=== PATIENT | female | born 1980 ===

== ENCOUNTER 2020-06-17 13:00 | Outpatient (REF) | payer MEDICAID, SELFPAY ==
--- NOTE | 2020-06-17 | US_ITS ---
EXAMINATION: RIGHT and LEFT LOWER EXTREMITY VENOUS ULTRASOUND (Reflux Exam) CLINICAL INDICATION: leg pain and varicose veins. COMPARISON: None. TECHNIQUE: Color flow triplex imaging and compression Doppler was performed to evaluate both the deep and the superficial systems bilaterally. To evaluate the superficial system, the examination was performed in the upright position. Color-flow Doppler ultrasound and compression ultrasound were utilized. In addition, maneuvers were utilized to demonstrate reflux. FINDINGS: 1. DEEP VENOUS ULTRASOUND OF THE RIGHT LOWER EXTREMITY: Respiratory variation, normal compression and augmented flow are noted in the right common femoral vein as well as the right popliteal vein and there is no evidence of deep venous thrombosis at these locations. There is no evidence of reflux in the deep system in either the common femoral vein or the popliteal vein. There is no evidence of a Suarez's cyst. 2. SUPERFICIAL ULTRASOUND WITH DOPPLER OF RIGHT LOWER EXTREMITY: The right great saphenous vein at the saphenofemoral junction measures 5 mm, at the mid thigh 4 mm, gzqga-osj-jjjw 3 mm, aqiea-ggw-yiqf 3 mm, at mid calf 2 mm and at the ankle measures 2 mm. There is no reflux demonstrated in the right great saphenous vein. There is a lateral accessory greater saphenous vein that measures 2 to 3 mm and does not demonstrate reflux. The right small saphenous vein measures 2 mm and shows no reflux. 3. DEEP VENOUS ULTRASOUND OF THE LEFT LOWER EXTREMITY: Respiratory variation, normal compression and augmented flow are noted in the left common femoral vein as well as the left popliteal vein and there is no evidence of deep venous thrombosis at these locations. There is no evidence of reflux in the deep system in either the common femoral vein or the popliteal vein. . There is no evidence of a Suarez's cyst. 4. SUPERFICIAL ULTRASOUND WITH DOPPLER OF LEFT LOWER EXTREMITY: Left great saphenous vein at the saphenofemoral junction measures 4 mm, at the mid thigh 3 mm, fdvje-zxa-sxba 3 mm, glwfw-iku-qhek 2 mm, at mid calf to mm and at the ankle measures 2 mm. There is no reflux demonstrated in the left great saphenous vein. There is a lateral accessory greater saphenous vein that measures 2 to 3 mm and does not demonstrate reflux The left small saphenous vein measures 2 mm and shows no reflux. There is a building drafting officer in the distal calf that measures 2 mm and does not demonstrate reflux. US/US venous duplex LE BI IMPRESSION: 1. No evidence of reflux or thrombus in the common femoral veins or popliteal veins bilaterally. 2. The saphenous systems are competent bilaterally.
== END 2020-06-17 13:01 | disposition home or self-care (01) ==
LOC: HO.US 13:00
PROVIDERS: PCP Internal Medicine; Visit Provider Surgery Vascular Surgery
DX: I83.11 Varicose veins of right lower extremity with inflammation (principal)
CPT/HCPCS: 93970

== ENCOUNTER → 2020-07-08 11:04 | Outpatient (BNVA) | payer MEDICAID, SELFPAY | PROVIDERS: PCP Internal Medicine; Visit Provider Surgery Vascular Surgery | DX: Z76.89 Persons encountering health services in other specified circumstances (principal) ==

== ENCOUNTER 2020-07-16 13:36 | Emergency (ER) | payer MEDICAID, SELFPAY ==
--- NOTE | 2020-07-16 14:05 | ED_ITS ---
HPI - Headache General Chief Complaint: Headache Stated Complaint: pain rt side of head and eye Time Seen by Provider: 07/16/20 14:05 Source: patient and skilled nursing facilities professional Mode of arrival: ambulatory Limitations: no limitations History of Present Illness MD elicited complaint: headache and migraine Pertinent past history: HIV and migraines Onset (ago): day(s) (4) Onset description: gradually Location: right and temporal Severity: similar to previous episodes Quality & Timing: aching, throbbing and progressively worsening Exacerbating factors: light and noise Relieving factors: prescription medication and sleep Context: occurred at rest Associated symptoms: nausea, photophobia and sensitivity to sound Treatments prior to arrival: prescription analgesic (fioricet) Related Data Home Medications Medication Instructions Recorded Confirmed No Known Home Meds 07/16/20 07/16/20 Previous Rx's Medication Instructions Recorded hghkzvkonh-rncnvquufbrbq-mqys 1 tab PO Q6H PRN #20 tab 07/16/20 cyclobenzaprine 10 mg PO TID PRN #14 tab 07/16/20 ondansetron 4 mg PO Q8H PRN #20 tab 07/16/20 Allergies Allergy/AdvReac Type Severity Reaction Status Date / Time azithromycin [AZITHROMYCIN] Allergy Intermediate DIARRHEA Verified 07/16/20 1 3:55 ciprofloxacin [From CIPRO] Allergy Intermediate DIARRHEA Verified 07/16/20 13:55 Review of Systems Review of Systems: Constitutional : No Fever, No Chills, No Fatigue ENT/Mouth : No sore throat, No Rhinorrhea Eyes: pos photophobia No Swelling, No Redness Cardiovascular : No Chest Pain, No SOB, No Dyspnea on Exertion Respiratory : No Cough, No Sputum Gastrointestinal : posNausea, No Vomiting, No Diarrhea, No abdominal Pain Genitourinary : No Dysuria, No Urinary Frequency, No Hematuria, Musculoskeletal : No joint pain, No Myalgias, No Joint Swelling Skin : No Skin Lesions, No rash Neuro : No Weakness, No Numbness, No Dizziness, positive Headache Psych : No Anxiety/Panic, No Depression Heme/Lymph: No Bruising, No Bleeding,No Lymphadenopathy Endocrine : No Polyuria, No Polydipsia All other systems reviewed and are negative PMFSH Past Medical History Attestation statement: The following information was validated with the patient. Medical History HIV (human immunodeficiency virus infection) Migraines Surgical History H/O section H/O hemorrhoidectomy History of hysterectomy Hx of colonoscopy Hx of ovarian cyst Family History Family History Father No problems noted. Mother No problems noted. Brother No problems noted. Son No problems noted. Son No problems noted. Social History Social History Smoking Status: Current every day smoker Tobacco Type: Cigarette Cigarettes Per Day: 6 Use of substances other than those prescribed or required for medical reasons: Yes Substance Use Type: Marijuana Advance Directives: No Advance Directives Information Provided: No Physical Exam Vital Signs: Vital Signs: Last Vital Signs Temp 98 F 07/16/20 15:34 Pulse 72 07/16/20 15:34 Resp 18 07/16/20 15:34 BP 136/80 07/16/20 15:34 Pulse Ox 97 07/16/20 15:34 Body Mass Index 21.7 Appearance: Alert. Oriented X3. No acute distress. Eyes: Pupils equal, round and reactive to light. + photophobia ENT: Pharynx normal. Neck: Normal inspection. Neck supple. no meningeal signs CVS: Normal heart rate and rhythm. Pulses normal. Respiratory: No respiratory distress. Breath sounds normal. Abdomen: Soft and nontender. Skin: Skin warm and dry. Normal skin color. Normal skin turgor. Extremities: No lower extremity edema. No calf ttp Neuro: Oriented X 3. No motor deficit. No sensory deficit. Course Course Course Narrative: feels better stable for DC MDM - Headache MDM Narrative Medical decision making narrative: 39 yo female with PMH of migraines and HIV not on AC therapy here with 4 days of R sided headache gradual onset without fevers similar to her prior migraines - states her HIV is stable and her viral count is low, has no meningeal signs of fevers at this time will provide supportive medications - given lack of fevers/meningeal signs/gradual onset/consistent with prior headaches doubt FIRST AID DIRECTOR infection or SAH Discharge Plan Discharge Clinical Impression: Migraine Qualifiers: Migraine type: without aura Status migrainosus presence: without status migrainosus Intractability: not intractable Qualified Code(s): G43.009 - Migraine without aura, not intractable, without status migrainosus Patient Disposition: Home, Self-Care Instructions: Migraine Headache (ED) Additional Instructions: return to ED for any worsening symptoms or concerns Prescriptions: New cyclobenzaprine 10 mg tablet 10 mg PO TID PRN (Reason: muscle spasm) Qty: 14 RF: 0 mkpmgixydh-jeobpqtsgzigd-plcd 50-325-40 mg tablet 1 tab PO Q6H PRN (Reason: pain) Qty: 20 RF: 0 ondansetron 4 mg tablet,disintegrating 4 mg PO Q8H PRN (Reason: nausea and vomiting) Qty: 20 RF: 0 No Action No Known Home Meds RF: 0 Referrals: [place],[facility] [Primary Care Provider] - 2 days (if not better) Stand Alone Forms: Work/School Release Print Language: Icelandic
[2020-07-16 14:26] VITALS: BP 124/82; PULSE 64; RESP 16; TEMP 36.5; O2SAT 95; BMI 21.7
[2020-07-16] MEDS: 0.9 % Sodium Chloride 1,000 ML 999 ML IVCONT (14:52)
[2020-07-16] MEDS: Magnesium Sulfate/H2O 2 GM/50 ML PIGGYBACK IV (14:53)
[2020-07-16] MEDS: dexAMETHasone sod phosphate 4 MG/ML VIAL IVPUSH (14:54)
[2020-07-16] MEDS: ondansetron HCL 4 MG/2 ML VIAL IVPUSH (14:56)
[2020-07-16] MEDS: Ketorolac Tromethamine 30 MG/ML VIAL IVPUSH (14:56)
[2020-07-16 15:34] VITALS: BP 136/80; PULSE 72; RESP 18; TEMP 36.6; O2SAT 97
== END 2020-07-16 16:15 | disposition home or self-care (01) ==
PROVIDERS: Emergency Provider Emergency Medicine
DX: G43.009 Migraine without aura, not intractable, without status migrainosus (principal); B20 Human immunodeficiency virus [HIV] disease; F17.210 Nicotine dependence, cigarettes, uncomplicated
CPT/HCPCS: 96365; 96375; 99284; J1100; J1885; J2405; J3475

== ENCOUNTER 2020-07-16 21:57 | Emergency (ER) | payer MEDICAID, SELFPAY ==
[2020-07-16 22:37] VITALS: BP 129/82; PULSE 66; RESP 16; TEMP 36.8; O2SAT 98; BMI 20.9
--- NOTE | 2020-07-16 22:53 | PC.NURSE ---
PT WOJCIECH HAD NORMAL CT SCAN AT PREVIOUS VISIT.
--- NOTE | 2020-07-16 23:23 | ED_ITS ---
HPI - General Adult General Chief complaint: General Medical Stated complaint: MONGE, SEEN FOR SAME TODAY Time Seen by Provider: 07/16/20 23:22 Source: patient Mode of arrival: ambulatory Limitations: no limitations History of Present Illness HPI narrative: Patient reports a migraine headache to the right side for the past 4 days reports she was seen here prior to arrival and was unable to fill her prescriptions there for the headache is back. With associated nausea Photophobia and sensitivity to sound. denies any other symptoms complaints or concerns at this time. Reports this is similar when compared to her prior migraine headaches. Related Data Previous Rx's Medication Instructions Recorded vpeihqmcfj-czflizfpiyxsx-zjxf 1 tab PO Q6H PRN #20 tab 07/16/20 cyclobenzaprine 10 mg PO TID PRN #14 tab 07/16/20 ondansetron 4 mg PO Q8H PRN #20 tab 07/16/20 oxycodone-acetaminophen [Percocet] 1 tab PO Q6H PRN #10 tab 07/16/20 Allergies Allergy/AdvReac Type Severity Reaction Status Date / Time azithromycin [AZITHROMYCIN] Allergy Intermediate DIARRHEA Verified 07/16/20 13:55 ciprofloxacin [From CIPRO] Allergy Intermediate DIARRHEA Verified 07/16/20 13:55 Review of Systems Review of Systems: Constitutional : No changes in activity, No lethargy, No recent prior head injury, No agitation, No increased fussiness ENT/Mouth : No Ear Pain, No Nasal discharge/drainage Eyes: No Eye Pain, No Swelling, No Redness, No Foreign Body, No Vision Changes Cardiovascular : No Chest Pain, No SOB Respiratory : No Cough Gastrointestinal : No Nausea, No Vomiting, No abdominal Pain Genitourinary : No Dysuria, No Urinary Frequency, No Urinary Incontinence, No Urgency, No Flank Pain Musculoskeletal : No joint pain, No neck stiffness, No back pain/injury Skin : No lacerations Neuro : No unsteady gait, No Paresthesias, No Loss of Consciousness, No altered mental status, No dizziness, + Headache Denies recent trauma, coagulopathy, recent spinal/ epidural procedure, new medication, URI symptoms, close contacts with similar symptoms, tick bite, or known CO2 exposure. Yes all other systems are reviewed and are negative PMFSH Past Medical History Attestation statement: The following information was validated with the patient. Medical History HIV (human immunodeficiency virus infection) Migraines Surgical History H/O section H/O hemorrhoidectomy History of hysterectomy Hx of colonoscopy Hx of ovarian cyst Family History Family History Father No problems noted. Mother No problems noted. Brother No problems noted. Son No problems noted. Son No problems noted. Social History Social History Alcohol intake: never Smoking Status: Current every day smoker Tobacco Type: Cigarette Cigarettes Per Day: 6 Substance Use Type: Marijuana Advance Directives: No Advance Directives Information Provided: Yes Physical Exam Vital Signs: Vital Signs: Last Vital Signs Temp 98.2 F 07/16/20 22:37 Pulse 66 07/16/20 22:37 Resp 16 07/16/20 22:37 BP 129/82 07/16/20 22:37 Pulse Ox 98 07/16/20 22:37 Body Mass Index 20.9 Vital signs have been reviewed as normal and appeared to be correct. Blood pressure normal. Heart rate normal. Respiration rate normal. Temperature normal. Oxygen saturation normal. Appearance: Alert. Oriented X3. No acute distress. Head: Normal external exam. Normocephalic. Atraumatic. Able to rotate head bilaterally. Eyes: PERRLA. EOMI. No nystagmus noted. Conjunctiva and sclera normal. Eyelids normal. Corneal reflex normal. ENT: EAC normal. TM's Normal. Hearing normal. Pharynx normal. Uvula midline. tongue midline. Moist mucous membranes. No trismus noted. No drooling noted. No muffled voice noted. Neck: Normal inspection. Neck supple. FROM. No adenopathy. Thyroid Normal. No meningeal signs. No neck mass noted. CVS: Normal heart rate and rhythm. Heart sound normal. No murmurs noted. Pulses normal throughout. Respiratory: No respiratory distress. Painless inspiration. Breath sounds normal. No wheezes/rales/rhonchi noted. Chest nontender. No accessory muscle usage noted or decreased air movement noted. Back: Full range of motion noted. Skin: Skin warm and dry. Normal skin color. Normal skin turgor. No rashes/lesions/lacerations noted. Extremities: Extremities exhibit normal range of motion. Extremities nontender. Able to shrug shoulders bilaterally and keep up against resistance. Neuro: Oriented X 3. No motor deficit. No sensory deficit. Reflexes normal. Moving all extremities. No focal motor deficits. Cranial nerves II-XI intact bilaterally. Facial strength normal. Normal cognition. Speech normal. Gait normal. Strength 5/5 throughout. No pronator drift. No tremor noted. No fasciculations noted. Muscle tone normal throughout. No asterixis noted. Guarls-yw-qmcu test normal. Heel to cifuentes test normal. Tandem gait normal. Does not sway with eyes open. Romberg test negative. Rapid alternating movement upper extremity normal. Rapid alternating movement lower extremity normal. Hand drop from overhead-Mrs. face. No rigidity noted. NIHSS score 0. Course Course Course Narrative: - Patient afebrile, resting comfortably in no distress. Non- toxic appearing. Patient denies any recent trauma/injury to head. Neurological exam shows no deficits. BP WNL. Denies any changes in vision. Patient ambulates without difficulty. Given the history, and physical - most likely diagnosis: Migraine MONGE. Although due to patient reporting that this is longer than her usual headaches will obtain CT scan of brain to evaluate for any acute processes. Will treat pain, and nausea. Will d/c with migraine medicaiton and advised to follow - up with PCP. Patient demonstrated good understanding of signs and symptoms to return to ED for further testing should sx worsen. gradual onset MONGE with photo/phonophobia, nausea. Pt states classic of previous migraine HAs. SAH: unlikely given gradual onset and similar to previous episodes Intracranial bleed: unlikely given neg trauma, neg anticoagulation Meningitis: unlikely given pt afebrile, neg stiff neck, no immune compromise. Exam without signs of meningismus Temporal arteritis: Unlikely given Neg jaw claudication, no temporal tenderness or nodularity on exam. Cerebral venous thrombosis: unlikely given no h/o hypercoaguable state, no chronic head/neck infection. Medical Decision Making Medical Records Medical records reviewed: Yes I reviewed the patient's medical records. Discharge Plan Discharge Clinical Impression: Migraine Patient Disposition: Home, Self-Care Instructions: Migraine Headache (ED) Prescriptions: New oxycodone-acetaminophen [Percocet] 5-325 mg tablet 1 tab PO Q6H PRN (Reason: pain) Qty: 10 RF: 0 No Action cyclobenzaprine 10 mg tablet 10 mg PO TID PRN (Reason: muscle spasm) Qty: 14 RF: 0 rongedplsa-ixjlianaipjtl-iiru 50-325-40 mg tablet 1 tab PO Q6H PRN (Reason: pain) Qty: 20 RF: 0 ondansetron 4 mg tablet,disintegrating 4 mg PO Q8H PRN (Reason: nausea and vomiting) Qty: 20 RF: 0 Referrals: Physician,Unknown [Primary Care Provider] - 2 days Print Language: Kenyan
[2020-07-16] MEDS: HYDROcodone Bit/Acetam 5/325 TABLET 1 TAB PO (23:42)
== END 2020-07-16 23:46 | disposition home or self-care (01) ==
PROVIDERS: Emergency Provider Emergency Medicine Emergency Medical Services
DX: G43.909 Migraine, unspecified, not intractable, without status migrainosus (principal); F17.210 Nicotine dependence, cigarettes, uncomplicated; F12.10 Cannabis abuse, uncomplicated; Z71.6 Tobacco abuse counseling; Z79.899 Other long term (current) drug therapy
CPT/HCPCS: 99283; 99284

== ENCOUNTER 2020-10-10 10:57 | Outpatient (REF) | payer MEDICAID, SELFPAY ==
--- NOTE | ~2020-10-10 | US_ITS ---
EXAMINATION: US PELVIS, COMPLETE US TRANSVAGINAL CLINICAL INFORMATION: Pelvic pain. COMPARISON: 08/06/2017 TECHNIQUE: Transabdominal and transvaginal imaging was performed. FINDINGS: Status post hysterectomy. Right ovary measures 3.1 x 1.9 x 2.4 cm. Volume 7.4 mL. There is a 1.7 cm simple-appearing cyst. Left ovary measures 1.9 x 1.3 x 1.2 cm. Volume 1.5 mL. Small follicles in the left ovary. There is a tubular structure with internal echogenicity and perhaps septations, located in the left adnexa, suggesting a hydrosalpinx. No free fluid in the cul-de-sac. US/US transvaginal IMPRESSION: Tubular structure with internal complexity and perhaps septations, located in the left adnexa, which could reflect a hydrosalpinx. Please clinically correlate and manage. Further evaluation with MRI as clinically warranted. Alternately, consider short-term followup ultrasound for reassessment. Status post hysterectomy. Right ovarian 1.7 cm simple cyst.
--- NOTE | ~2020-10-10 | US_ITS ---
EXAMINATION: US PELVIS, COMPLETE US TRANSVAGINAL CLINICAL INFORMATION: Pelvic pain. COMPARISON: 08/06/2017 TECHNIQUE: Transabdominal and transvaginal imaging was performed. FINDINGS: Status post hysterectomy. Right ovary measures 3.1 x 1.9 x 2.4 cm. Volume 7.4 mL. There is a 1.7 cm simple-appearing cyst. Left ovary measures 1.9 x 1.3 x 1.2 cm. Volume 1.5 mL. Small follicles in the left ovary. There is a tubular structure with internal echogenicity and perhaps septations, located in the left adnexa, suggesting a hydrosalpinx. No free fluid in the cul-de-sac. US/US pelvic complete IMPRESSION: Tubular structure with internal complexity and perhaps septations, located in the left adnexa, which could reflect a hydrosalpinx. Please clinically correlate and manage. Further evaluation with MRI as clinically warranted. Alternately, consider short-term followup ultrasound for reassessment. Status post hysterectomy. Right ovarian 1.7 cm simple cyst.
== END 2020-10-10 10:58 | disposition home or self-care (01) ==
LOC: HO.US 10:57
PROVIDERS: Visit Provider Advanced Practice Midwife
DX: R10.2 Pelvic and perineal pain (principal)
CPT/HCPCS: 76830; 76856

== ENCOUNTER 2021-11-17 11:44 | Outpatient (REF) | payer MEDICAID, SELFPAY ==
--- NOTE | ~2021-11-17 | US_ITS ---
EXAMINATION: US PELVIS CLINICAL INFORMATION: Right lower quadrant pain. COMPARISON: Pelvic ultrasound 10/10/[address] scans of the abdomen and pelvis most recent of which was 06/04/2016. TECHNIQUE: Ultrasound of the pelvis is performed using both transabdominal and transvaginal transducers along with Doppler. Transvaginal imaging is performed due to inadequate visualization transabdominally. FINDINGS: UTERUS: Not seen status post hysterectomy ADNEXA: RIGHT OVARY: The right ovary measures 3.0 x 1.8 x 1.9 cm for a volume of 5.4 mL and appears unremarkable. What appears to be some free fluid versus tubular cystic structure is present in the adnexal/cul-de-sac on the right, rather than a cystic mass. LEFT OVARY: Measures 2.6 x 1.6 x 1.9 cm for a volume of 4.1 mL. What appears to be some free fluid/adnexal cystic structure is also present in the left adnexa. US/US pelvic and transvaginal IMPRESSION: Status post hysterectomy. The ovaries appear normal. Cystic structures in the adnexa versus free fluid present bilaterally. Similar findings have been present in the past. A solid worrisome mass is not seen. The most recent pelvic CT was 06/04/2016. Should patient's symptoms persist, pelvic MRI may be useful for further evaluation.
== END 2021-11-17 11:45 | disposition home or self-care (01) ==
LOC: HO.US 11:44
PROVIDERS: Visit Provider Advanced Practice Midwife
DX: R10.31 Right lower quadrant pain (principal); N70.11 Chronic salpingitis; Z90.710 Acquired absence of both cervix and uterus
CPT/HCPCS: 76830; 76856

== ENCOUNTER 2021-12-02 01:25 | Emergency (ER) | payer MEDICAID, SELFPAY ==
[2021-12-02 01:42] VITALS: BP 105/69; PULSE 83; RESP 16; TEMP 36.7; O2SAT 98; BMI 23.6
[2021-12-02 04:08] VITALS: BP 101/70; PULSE 77; RESP 18; TEMP 36.7; O2SAT 98
[2021-12-02] MEDS: Acetaminophen 325 MG TABLET 975 MG PO (04:22)
[2021-12-02] MEDS: Ketorolac Tromethamine 15 MG/ML VIAL IM (04:22)
[2021-12-02] MEDS: Lidocaine 4 % Patch ADH..PATCH 1 PATCH TRANSDERMA (04:23)
--- NOTE | 2021-12-02 04:26 | PC.NURSE ---
Pt medicated per MAR.
--- NOTE | 2021-12-02 04:30 | PC.NURSE ---
Pt medicated per MAR. CORDOVA at bedside for eval.
--- NOTE | 2021-12-02 05:18 | ED_ITS ---
HPI - Back Pain/Injury General Chief Complaint: Back Pain/Injury Stated Complaint: lower back pain Time Seen by Provider: 12/02/21 05:18 Source: patient and director of medical review History of Present Illness HPI Narrative: A 41-year-old female with history of HIV and currently takes care of her ailing father at home and presents with onset of left lower back pain without groin numbness and she states that does not radiate into either lower extremity and she denies any bowel or bladder dysfunction. In addition, patient denies any history of IVDA, fevers, chills, GI or symptoms. Patient states that the pain is worse with movement. Related Data Previous Rx's Medication Instructions Recorded [id number] 1 tab PO Q6H PRN #20 tab 07/16/20 50 mg-325 mg-40 mg tablet cyclobenzaprine 10 mg tablet 10 mg PO TID PRN #14 tab 07/16/20 ondansetron 4 mg disintegrating 4 mg PO Q8H PRN #20 tab 07/16/20 tablet oxycodone-acetaminophen 5 mg-325 1 tab PO Q6H PRN #10 tab 07/16/20 mg tablet (Percocet) cyclobenzaprine 5 mg tablet 5 mg PO BEDTIME PRN #4 tab 12/02/21 ketorolac 10 mg tablet 10 mg PO Q6H PRN 5 Days #20 tab 12/02/21 nitrofurantoin 100 mg PO Q12H 5 Days #10 cap 12/02/21 monohydrate/macrocrystals 100 mg capsule (Macrobid) Allergies Allergy/AdvReac Type Severity Reaction Status Date / Time azithromycin [AZITHROMYCIN] Allergy Intermediate DIARRHEA Verified 12/02/21 01:46 ciprofloxacin [From CIPRO] Allergy Intermediate DIARRHEA Verified 12/02/21 01:46 Review of Systems Review of Systems: Pertinent positives and negatives as stated in HPI 10 point review of systems is otherwise negative. [facility] Past Medical History Source: nursing notes reviewed Medical History HIV (human immunodeficiency virus infection) Migraines Surgical History H/O section H/O hemorrhoidectomy History of hysterectomy Hx of colonoscopy Hx of ovarian cyst Family History Family History Father No problems noted. Mother No problems noted. Brother No problems noted. Son No problems noted. Son No problems noted. Social History Social History Alcohol intake: never Cigarettes Per Day: 6 Substance Use Type: Marijuana Advance Directives: No Advance Directives Information Provided: Yes Patient : No Physical Exam Vital Signs: Vital Signs: Last Vital Signs Temp 98.2 F 12/02/21 05:27 Pulse 64 12/02/21 05:27 Resp 16 12/02/21 05:27 BP 100/69 12/02/21 05:27 Pulse Ox 100 12/02/21 05:27 BMI result Body Mass Index 23.6 VITAL SIGNS: Reviewed. GENERAL: Well developed, well nourished, in no acute distress. HEAD: Normocephalic/atraumatic EYES: PERRLA, EOMI EARS: Ext canals without abnormality, TMs non-bulging and non-erythematous NOSE: Nares patent bilateral OROPHARYNX: no oral lesions noted, posterior pharynx clear and non-erythematous without noted tonsillar enlargement/erythema/exudates NECK: Supple, no adenopathy LUNGS: Normal breath sounds. No adventitious sounds or accessory muscle use. SpO2<100> CARDIOVASCULAR: Regular rate and rhythm without noted murmurs ABDOMEN: Soft, non-tender, non-distended with bowel sounds, no CVA tenderness BACK: No midline vertebral tenderness, no erythema or induration noted over left lower back paraspinal area, but obvious muscle spasm on palpation, straight leg test negative MUSCULOSKELETAL: No tenderness, deformities, or effusions noted on gross inspection. EXTREMITIES: No cyanosis, clubbing or edema. SKIN: Inspection of the skin reveals no rashes NEUROLOGIC: Alert and oriented x 4. Strength and sensation to light touch were grossly intact x 4. Course Course Course Narrative: 41-year-old female with history and clinical presentation most consistent with muscle spasm and no evidence to suggest cauda equina, spinal abscess, or abdominal/urologic etiology. Patient was provided with combination analgesics and on re-evaluation reports considerable improvement in her symptoms and she is otherwise discharged home in stable condition. MDM - Back Pain/Injury Lab Data Labs: Lab Results 12/02/21 Range/Units 05:23 Urine Color YELLOW Urine Appearance HAZY Urine pH 6.5 (5.0-8.0) Ur Specific [place] 1.025 (1.005-1.025) Urine Protein NEG (NEG-TRACE) MG/DL Urine Glucose (UA) NEG (NEG) MG/DL Urine Ketones 5 (NEG) MG/DL Urine Blood 2+ H (NEG) Urine Nitrite POS H (NEG) Ur Leukocyte Esterase NEG (NEG) Discharge Plan Discharge Clinical Impression: Muscle spasm, Left low back pain, UTI (urinary tract infection) Patient Disposition: Home, Self-Care Instructions: Muscle Spasm (ED), Back Pain (ED) Additional Instructions: 1. Tylenol 1000 mg, por v?a oral, cada 6 horas seg?n sea necesario para controlar el dolor. No exceda los 4000 mg dentro de las 24 horas. 2. Parche de lidoca?na, aplique en el ?amy de m?xima sensibilidad matilda se indica en el empaque exterior. 3. Realice un seguimiento con proveedor de atenci?n primaria en los pr?ximos 1 a 2 d?as para bro reevaluaci?n adicional del manejo ambulatorio. Regrese a la isabell de emergencias si los s?ntomas empeoran. Prescriptions: New ketorolac 10 mg tablet 10 mg PO Q6H PRN (Reason: pain) 5 Days Qty: 20 0RF cyclobenzaprine 5 mg tablet 5 mg PO BEDTIME PRN (Reason: muscle spasm) Qty: 4 0RF nitrofurantoin monohyd/m-cryst [Macrobid] 100 mg capsule 100 mg PO Q12H 5 Days Qty: 10 0RF Rx Instructions: must administer with a meal/food No Action cyclobenzaprine 10 mg tablet 10 mg PO TID PRN (Reason: muscle spasm) Qty: 14 0RF keqninpzqk-evprfwvgqtlwi-qalc 50-325-40 mg tablet 1 tab PO Q6H PRN (Reason: pain) Qty: 20 0RF ondansetron 4 mg tablet,disintegrating 4 mg PO Q8H PRN (Reason: nausea and vomiting) Qty: 20 0RF oxycodone-acetaminophen [Percocet] 5-325 mg tablet 1 tab PO Q6H PRN (Reason: pain) Qty: 10 0RF Referrals: [facility] [Primary Care Provider] - Print Language: Croatian
[2021-12-02 05:27] VITALS: BP 100/69; PULSE 64; RESP 16; TEMP 36.8; O2SAT 100
[2021-12-02] MEDS: Cyclobenzaprine HCl 10 MG TABLET PO (05:28)
[2021-12-02 05:34] LABS: Appearance Urine HAZY; Color Urine YELLOW; Glucose Urine UA NEG (NEG); Leukocyte Esterase Urine NEG (NEG); Nitrite Urine POS (NEG); PH 6.5 (5.0-8.0); Specific Gravity - Urine 1.025 (1.005-1.025); UACC Culture Trigger YES; Urine Blood 2+ (NEG); Urine Ketones 5 MG/DL (NEG); Urine Protein NEG (NEG-TRACE)
[2021-12-02 05:41] LABS: Bacteria Urine 4+ /LPF; Mucus Urine 2+ /LPF; Squamous Epithelial Cell Urine 2+ /LPF
[2021-12-02] MEDS: Nitrofurantoin Monohyd/M-Cryst 100 MG CAPSULE PO (05:49)
== END 2021-12-02 05:57 | disposition home or self-care (01) ==
PROVIDERS: Emergency Provider Student in an Organized Health Care Education/Training Program
DX: N39.0 Urinary tract infection, site not specified (principal); M54.50 Low back pain, unspecified; Z79.899 Other long term (current) drug therapy; F17.210 Nicotine dependence, cigarettes, uncomplicated; Z71.6 Tobacco abuse counseling
CPT/HCPCS: 81001; 87086; 87088; 87186; 96372; 99284; J1885

== ENCOUNTER 2021-12-16 10:26 | Outpatient (REF) | payer MEDICAID, SELFPAY ==
--- NOTE | ~2021-12-16 | MM_ITS ---
EXAMINATION: MM SCREENING DIGITAL BREAST TOMOSYNTHESIS, BILATERAL CLINICAL INFORMATION: Screening. Asymptomatic. Age 41. No prior breast imaging. The lifetime risk of breast cancer based on the Tyrer-Cuzick Model is 11%. COMPARISON: None (current study represents initial baseline exam). TECHNIQUE: Digital breast tomosynthesis is performed in both the craniocaudal and mediolateral oblique views along with computer-aided detection (CAD). Synthesized 2D images are generated from the tomosynthesis. FINDINGS: There are scattered areas of fibroglandular density (ACR BI-RADS breast composition Category b). There are no significant masses, abnormal calcifications, or other abnormalities. There is some fine deodorant artifact overlying left axilla skin fold on MLO view as incidental finding. MM/MM tomosynthesis screening BI IMPRESSION: No mammographic evidence of malignancy. ASSESSMENT: BI-RADS 2: Benign RECOMMENDATION: Routine annual mammography screening. This patient's information was entered into a reminder system with a target due date for their next mammogram.
== END 2021-12-16 10:27 | disposition home or self-care (01) ==
LOC: HO.MAMMO 10:26
PROVIDERS: Visit Provider Internal Medicine
DX: Z12.31 Encounter for screening mammogram for malignant neoplasm of breast (principal)
CPT/HCPCS: 77063; 77067

== ENCOUNTER 2022-03-11 16:35 | Emergency (ER) | payer MEDICAID, SELFPAY ==
[2022-03-11 17:09] VITALS: BP 113/74; PULSE 95; RESP 18; TEMP 36.6; O2SAT 59; BMI 21.7
[2022-03-11] MEDS: Ondansetron ODT 4 MG TAB.RAPDIS TRANSLINGU (17:13)
== END 2022-03-11 23:00 | disposition left against medical advice (07) ==
PROVIDERS: Emergency Provider Emergency Medicine
DX: R51.9 Headache, unspecified (principal); R11.10 Vomiting, unspecified; B20 Human immunodeficiency virus [HIV] disease; F12.90 Cannabis use, unspecified, uncomplicated; F17.210 Nicotine dependence, cigarettes, uncomplicated
CPT/HCPCS: 99281; 99283

== ENCOUNTER 2022-03-20 09:56 | Outpatient (RCR) | payer MEDICAID, SELFPAY | END 2022-03-31 15:09 | disposition home or self-care (01) | LOC: HO.PT 09:56 | PROVIDERS: PCP Internal Medicine; Visit Provider Internal Medicine | DX: M54.50 Low back pain, unspecified (principal) | CPT/HCPCS: 97140; 97161; 97530 ==

== ENCOUNTER 2022-08-11 10:45 | Emergency (ER) | payer MEDICAID, SELFPAY ==
--- NOTE | ~2022-08-11 | CT_ITS ---
EXAMINATION: CT ABDOMEN AND PELVIS WITHOUT CONTRAST CLINICAL INFORMATION: Left flank pain COMPARISON: Previous pelvic ultrasounds most recent November [address] from 2016 TECHNIQUE: Multidetector volumetric imaging was performed from the superior aspect of the liver through the pubic symphysis. Sagittal and coronal reformatted images were obtained on the technologist's workstation. This CT examination was performed using dose optimization techniques as appropriate, variously including the following: *Automated exposure control *Adjustment of mA and/or kV according to patient size (this includes techniques or standardized protocols for targeted exams where dose is matched to indication/reason for exam; i.e. extremities or head) *Use of iterative reconstruction technique DLP: 391 mGy-cm FINDINGS: LUNG BASES: The visualized lung bases are unremarkable. LIVER, GALLBLADDER, AND BILIARY TREE: The liver is normal in size, shape, and attenuation. No focal hepatic lesion or biliary ductal dilatation is present. The gallbladder is unremarkable with no evidence of radiopaque gallstones, gallbladder wall thickening, or obvious pericholecystic inflammatory changes. PANCREAS: Unremarkable. SPLEEN: Unremarkable. ADRENAL GLANDS: Unremarkable. KIDNEYS AND URETERS: The kidneys are normal in size, shape, and attenuation. No hydronephrosis, hydroureter, or calculi seen. No perinephric stranding. There may be a small cyst in the lower pole of the right kidney. BLADDER: Unremarkable. GASTROINTESTINAL TRACT: The small and large bowel are unremarkable. The appendix is not seen. No inflammatory changes in the right lower quadrant. ABDOMINAL WALL: Postsurgical changes to the anterior abdominal wall. LYMPH NODES: Normal. VASCULAR: Unremarkable. PELVIC VISCERA: Right adnexal cyst/cysts. This appears similar to previous pelvic ultrasounds. It is possible this could represent a hydrosalpinx. Small amount of ascites in the pelvis with question dependent high attenuation material or calcification new from previous exams. OSSEOUS STRUCTURES: Unremarkable. CT/CT abdomen pelvis wo IV con IMPRESSION: No stone or hydronephrosis seen. Cyst or cystic structure in the right adnexa. This may be similar to previous ultrasound exams. This could be better evaluated with ultrasound or MRI. Again appearance is questionable for possible hydrosalpinx. New small amount of fluid in the pelvis with dependent high attenuation questionable for calcification. Calcification. Fleischner guidelines were followed.
[2022-08-11 11:45] VITALS: BP 99/73; PULSE 67; RESP 20; TEMP 36.7; O2SAT 99; BMI 23.3
[2022-08-11 12:23] LABS: Appearance Urine Clear; Color Urine Dark Yellow; Glucose Urine UA Negative (Negative); Leukocyte Esterase Urine Negative (Negative); Nitrite Urine Positive (Negative); PH 5.5 (5.0-9.0); Specific Gravity - Urine >= 1.030 (1.005-1.025); UMIC TRIGGER UACC YES; Urine Blood Moderate (2+) (Negative); Urine Ketones Trace mg/dL (Negative); Urine Protein Trace mg/dL (Neg-Trace)
[2022-08-11 12:28] LABS: Bacteria Urine Trace (None Seen); RBC Urine >20 /HPF (0-2); UACC Culture Trigger YES; WBC Urine 0-5 /HPF (0-5)
--- NOTE | 2022-08-11 12:58 | ED_ITS ---
HPI - Abdominal Pain General Chief Complaint: Back Pain/Injury Stated Complaint: Back pain x1week Time Seen by Provider: 08/11/22 12:49 Source: patient Mode of arrival: ambulatory Limitations: no limitations History of Present Illness HPI narrative: Patient is a 41-year-old female who presents to the emergency department for evaluation of left lower back pain. She reports onset of symptoms to be 1 week ago, however the pain became severely worse today. She states that the pain radiates around her side and into the left lower abdomen / groin and into the top of her leg. She does endorse a history of neuropathy which has caused similar pain in the past but not to this extent. She has been taking Tylenol and ibuprofen at home without significant improvement. Of note, she has not taken any pain medications today. She denies associated fevers, chills, nausea, vomiting, upper abdominal pain, dysuria, urinary frequency/ urgency / hesitancy, Hematuria, pelvic pain, vaginal discharge, possibility of or sexually transmitted infections. she denies any precipitating trauma, bladder or bowel dysfunction, numbness or tingling to the extremities. She does endorse a history of HIV but she states that her viral load was undetectable most recently, does not recall her most recent CD4 count but does know it was approximately 6 months ago. She reports compliance with her medications. Related Data Previous Rx's Medication Instructions Recorded [id number] 1 tab PO Q6H PRN pain #20 tabs 07/16/20 50 mg-325 mg-40 mg tablet cyclobenzaprine 10 mg tablet 10 mg PO TID PRN muscle spasm #14 07/16/20 tabs ondansetron 4 mg disintegrating 4 mg PO Q8H PRN nausea and 07/16/20 tablet vomiting #20 tabs oxycodone-acetaminophen 5 mg-325 1 tab PO Q6H PRN pain #10 tabs 07/16/20 mg tablet (Percocet) cyclobenzaprine 5 mg tablet 5 mg PO BEDTIME PRN muscle spasm 12/02/21 #4 tabs ketorolac 10 mg tablet 10 mg PO Q6H PRN pain 5 days #20 12/02/21 tabs nitrofurantoin 100 mg PO Q12H 5 days #10 caps 12/02/21 monohydrate/macrocrystals 100 mg capsule (Macrobid) cefpodoxime 200 mg tablet 200 mg PO BID 7 days #14 tabs 08/11/22 naproxen 500 mg tablet 500 mg PO BID PRN pain #14 tabs 08/11/22 Allergies Allergy/AdvReac Type Severity Reaction Status Date / Time azithromycin [AZITHROMYCIN] Allergy Intermediate DIARRHEA Verified 03/11/22 17:08 ciprofloxacin [From CIPRO] Allergy Intermediate DIARRHEA Verified 03/11/22 17:08 Review of Systems Review of Systems Constitutional : No Weight loss, No Fever, No Chills ENT/Mouth :? No sore throat, No Rhinorrhea Eyes: No Swelling, No Redness Cardiovascular : No Chest Pain, No SOB, No Edema Respiratory : No Cough, No Sputum, No Wheezing Gastrointestinal : No Nausea, no Vomiting, no Diarrhea, positive abdominal pain, No Hematochezia, No Melena Genitourinary : No Dysuria, No Urinary Frequency, No Hematuria, No Urgency? Musculoskeletal : positive back pain. No joint pain, No Myalgias, No Joint Swelling Skin : No Skin Lesions, No rash Neuro : No Weakness, No Numbness, No Dizziness, No Headache Psych : No Anxiety/Panic, No Depression Heme/Lymph: No Bruising, No Lymphadenopathy Yes all other systems are reviewed and are negative PMFSH Past Medical History Attestation statement: The following information was validated with the patient. Source: old records reviewed Medical History HIV (human immunodeficiency virus infection) Migraines Surgical History H/O section H/O hemorrhoidectomy History of hysterectomy Hx of colonoscopy Hx of ovarian cyst Family History Family History Father No problems noted. Mother No problems noted. Brother No problems noted. Son No problems noted. Son No problems noted. Social History Social History Alcohol intake: never Cigarettes Per Day: 6 Substance Use Type: Marijuana Advance Directives: No Advance Directives Information Provided: No Physical Exam ED Vital Signs: Vital Signs - 24 hr 08/11/22 11:45 08/11/22 13:51 08/11/22 14:37 Temperature 98.0 F 98.4 F 98.1 F Pulse Rate 67 85 64 Respiratory Rate 20 18 16 Blood Pressure 99/73 134/86 149/83 H Pulse Oximetry 99 100 98 Oxygen Delivery Method Room Air Room Air BMI result Body Mass Index 23.3 Appearance: Alert.?Oriented to person, place and time. No acute distress.?Normal affect. Eyes: Pupils equal, round and reactive to light.? ENT: Pharynx normal.?? Neck: Normal inspection.? Neck supple.?? CVS: Heart sounds normal. Normal heart rate and rhythm.? Pulses normal.?? Respiratory: No respiratory distress.? Lung sounds clear to auscultation bilaterally?? Abdomen: Soft and non-tender. Normoactive bowel sounds. Skin: Skin warm and dry.? Normal skin color.? Extremities: No lower extremity edema.? Back: No paraspinal muscular tenderness. positive left CVA tenderness. No midline spinal tenderness, step-off's, or deformity. Full ROM intact in bilateral lower extremities. No rashes, lesions, areas of induration or fluctuance, or signs of infection noted. Neuro: Moves all extremities spontaneously. 5/5 strength in hip extension/flexion, abduction, adduction. Sensation to light touch intact bilaterally. Patellar and Achilles reflex 2+ bilaterally. No ataxia, gait normal and steady. No focal neuro deficits. Course Reevaluation(s) Reevaluation #1: urinalysis concerning for urinary tract infection, positive nitrites, trace bacteria, and microscopic hematuria is present. Patient be treated with ceftriaxone IV, will receive 1 L normal saline IV fluids in addition to ketorolac IV for pain. Time: 13:46 Reevaluation #2: CT of the abdomen and pelvis reveals no hydronephrosis or renal calculi. There is a cystic structure of the right adnexa that appears similar to prior ultrasound examinations, There is a new small amount of fluid in the pelvis dependent high attenuation questionable for calcification. Patient reports significant improvement in pain after receiving Toradol, currently 2/10. given presence of flank pain most concerning for pyelonephritis at this time, however she is nontoxic appearing, tolerating oral intake, she has an allergy to ciprofloxacin, at this time discussed plan of care for discharge home with prescription for Cefpodoxime in addition to naproxen, culture was sent and will be followed, advised outpatient follow-up with the primary care provider. Discussed worsening signs and symptoms to return back to emergency department for. All questions answered. She is discharged in stable condition. Time: 15:24 Medical Decision Making Medical Decision Making [facility] Narrative: patient is a 41-year-old female with a past medical history of asthma, HIV who presents to the emergency department for evaluation of left flank/ back radiating into the abdomen. At the time of examination she appears uncomfortable. Abdominal exam is benign she does have left CVA tenderness. Examination of the back without evidence of infection, no areas of fluctuance, induration, lesions, rashes. Will obtain CBC to evaluate for leukocytosis/ anemia, CMP to evaluate for abnormal electrolytes /abnormal renal function/ abnormal hepatic function, a CT of the abdomen and pelvis to evaluate for renal calculi, hydronephrosis, evidence of pyelonephritis, and Urinalysis. Lab Data [facility] Lab Attestation statement: I reviewed the patient's lab results. Result Diagrams: 08/11/22 13:23 08/11/22 13:23 Labs: Lab Results 08/11/22 08/11/22 08/11/22 Range/Units 12:16 12:19 13:23 WBC 4.3 L (4.8-10.8) X10*3/uL RBC 4.09 L (4.20-5.50) X10*6/uL Hgb 13.2 (12.0-16.0) g/dl Hct 39.8 (37.0-47.0) % MCV 97.3 (80.0-98.0) fL MCH 32.3 (27.0-33.0) pg MCHC 33.2 (31.0-35.0) g/dl RDW 11.9 (11.0-16.0) % Plt Count 141 L (160-400) X10*3/uL MPV 10.3 (9.4-12.3) fL Immature Gran % (Auto) 0.2 (0.0-0.4) % Neut % (Auto) 60.2 (45-73) % Lymph % (Auto) 30.4 (20-40) % Chase % (Auto) 7.1 (2-11) % Eos % (Auto) 1.9 (0-4) % Baso % (Auto) 0.2 (0-2) % Lymph # (Auto) 1.3 (1.2-4.9) X10*3/uL Chase # (Auto) 0.3 (0.1-1.2) X10*3/uL Eos # (Auto) 0.1 (0.0-0.4) X10*3/uL Baso # (Auto) 0.0 (0.0-0.2) X10*3/uL Abs Immat Gran (auto) 0.01 (0.00-0.03) X10*3/uL Absolute Neuts (auto) 2.6 (2.0-8.3) x10*3/uL Absolute Nucleated RBC 0.000 (0.0-0.012) X10*3/uL Nucleated RBC % (auto) 0.0 (0.0-0.2) /100WBC Sodium (135-145) mmol/L Potassium (3.3-5.1) mmol/L Chloride (96-108) mmol/L Carbon Dioxide (22-29) mmol/L Anion Gap (12-20) BUN (9-16) mg/dL Creatinine (0.5-1.4) mg/dL Estim Creat Clear Calc Estimated GFR Random Glucose (60-115) mg/dL Calcium (8.4-10.2) mg/dL Total Bilirubin (0.0-1.0) mg/dL AST (5-31) U/L ALT (0-31) U/L Alkaline Phosphatase (39-117) U/L Total Protein (6.5-8.0) g/dL Albumin (3.5-5.0) g/dL Urine Color Dark Yellow Urine Appearance Clear Urine pH 5.5 (5.0-9.0) Ur Specific Pierce >= 1.030 H (1.005-1.025) Urine Protein Trace (Neg-Trace) mg/dL Urine Glucose (UA) Negative (Negative) mg/dL Urine Ketones Trace (Negative) mg/dL Urine Blood Moderate (2+) H (Negative) Urine Nitrite Positive H (Negative) Ur Leukocyte Esterase Negative (Negative) Urine RBC >20 H (0-2) /HPF Urine WBC 0-5 (0-5) /HPF Ur Squamous Epith Cells 3-5 (0-2) /HPF Urine Bacteria Trace (None Seen) Hyaline Casts 3-5 (0-2) /LPF Urine Test NEGATIVE (NEGATIVE) 08/11/22 Range/Units 13:23 WBC (4.8-10.8) X10*3/uL RBC (4.20-5.50) X10*6/uL Hgb (12.0-16.0) g/dl Hct (37.0-47.0) % MCV (80.0-98.0) fL MCH (27.0-33.0) pg MCHC (31.0-35.0) g/dl RDW (11.0-16.0) % Plt Count (160-400) X10*3/uL MPV (9.4-12.3) fL Immature Gran % (Auto) (0.0-0.4) % Neut % (Auto) (45-73) % Lymph % (Auto) (20-40) % Chase % (Auto) (2-11) % Eos % (Auto) (0-4) % Baso % (Auto) (0-2) % Lymph # (Auto) (1.2-4.9) X10*3/uL Chase # (Auto) (0.1-1.2) X10*3/uL Eos # (Auto) (0.0-0.4) X10*3/uL Baso # (Auto) (0.0-0.2) X10*3/uL Abs Immat Gran (auto) (0.00-0.03) X10*3/uL Absolute Neuts (auto) (2.0-8.3) x10*3/uL Absolute Nucleated RBC (0.0-0.012) X10*3/uL Nucleated RBC % (auto) (0.0-0.2) /100WBC Sodium 138 (135-145) mmol/L Potassium 4.2 (3.3-5.1) mmol/L Chloride 108 (96-108) mmol/L Carbon Dioxide 26 (22-29) mmol/L Anion Gap 8 L (12-20) BUN 19 H (9-16) mg/dL Creatinine 0.72 (0.5-1.4) mg/dL Estim Creat Clear Calc 95.3 Estimated GFR > 60 Random Glucose 85 (60-115) mg/dL Calcium 8.7 (8.4-10.2) mg/dL Total Bilirubin 0.5 (0.0-1.0) mg/dL AST 16 (5-31) U/L ALT 17 (0-31) U/L Alkaline Phosphatase 63 (39-117) U/L Total Protein 6.4 L (6.5-8.0) g/dL Albumin 3.8 (3.5-5.0) g/dL Urine Color Urine Appearance Urine pH (5.0-9.0) Ur Specific [place] (1.005-1.025) Urine Protein (Neg-Trace) mg/dL Urine Glucose (UA) (Negative) mg/dL Urine Ketones (Negative) mg/dL Urine Blood (Negative) Urine Nitrite (Negative) Ur Leukocyte Esterase (Negative) Urine RBC (0-2) /HPF Urine WBC (0-5) /HPF Ur Squamous Epith Cells (0-2) /HPF Urine Bacteria (None Seen) Hyaline Casts (0-2) /LPF Urine Test (NEGATIVE) Radiology Impression Discussion of test interpretation with radiology: I have reviewed the radiologist's reading. Radiologist Impression: CT/CT abdomen pelvis wo IV con IMPRESSION: No stone or hydronephrosis seen. Cyst or cystic structure in the right adnexa. This may be similar to previous ultrasound exams. This could be better evaluated with ultrasound or MRI. Again appearance is questionable for possible hydrosalpinx. New small amount of fluid in the pelvis with dependent high attenuation questionable for calcification. Calcification. ? Fleischner guidelines were followed. Prescription Management I considered prescription management with: Pain Medication and Antibiotic cefpodoxime and naproxen sent to patient's pharmacy Medications Administered Discontinued Medications Generic Name Dose Route Start Last Admin Trade Name Freq PRN Reason Stop Dose Admin Sodium Chloride 1,000 mls @ 999 mls/hr 08/11/22 13:15 08/11/22 13:49 Ns IV 08/11/22 14:15 999 mls/hr .Q1H1M AMANDO Administration Ceftriaxone Sodium 1 gm/ 50 mls @ 100 mls/hr 08/11/22 13:11 08/11/22 14:59 Sodium Chloride IV 08/11/22 13:40 Infused ONCE ONE Infusion Ketorolac Tromethamine 30 mg 08/11/22 13:11 08/11/22 13:48 Ketorolac Tromethamine 30 Mg/Ml Vial IVPUSH 08/11/22 13:12 30 mg ONCE ONE Administration Discharge Plan Discharge Clinical Impression: Pyelonephritis Patient Disposition: Home, Self-Care Instructions: Kidney Infection (ED) Additional Instructions: as discussed, a prescription for antibiotic was sent to your pharmacy please complete this entire course. you have been given a prescription for naproxen to use twice daily as needed for pain, do not use ibuprofen in addition to this medication return to the emergency department with any new or worsening symptoms or concerns. Please follow-up with your primary care provider within the next week Prescriptions: New cefpodoxime 200 mg tablet 200 mg PO BID 7 Days Qty: 14 0RF Rx Instructions: must administer with a meal/food naproxen 500 mg tablet 500 mg PO BID PRN (Reason: pain) Qty: 14 0RF No Action cyclobenzaprine 10 mg tablet 10 mg PO TID PRN (Reason: muscle spasm) Qty: 14 0RF djsiiwionc-ylhwncszttpdn-phnb 50-325-40 mg tablet 1 tab PO Q6H PRN (Reason: pain) Qty: 20 0RF ondansetron 4 mg tablet,disintegrating 4 mg PO Q8H PRN (Reason: nausea and vomiting) Qty: 20 0RF oxycodone-acetaminophen [Percocet] 5-325 mg tablet 1 tab PO Q6H PRN (Reason: pain) Qty: 10 0RF ketorolac 10 mg tablet 10 mg PO Q6H PRN (Reason: pain) 5 Days Qty: 20 0RF cyclobenzaprine 5 mg tablet 5 mg PO BEDTIME PRN (Reason: muscle spasm) Qty: 4 0RF nitrofurantoin monohyd/m-cryst [Macrobid] 100 mg capsule 100 mg PO Q12H 5 Days Qty: 10 0RF Rx Instructions: must administer with a meal/food Referrals: [facility] [Primary Care Provider] - Interventions: ED Discharge Assessment Last Done: 08/11/22 16:17 Discharge Date/Time: 08/11/22 16:18
[2022-08-11 13:18] LABS: UPreg QC Valid YES; Urine Pregnancy NEGATIVE (NEGATIVE)
[2022-08-11 13:26] LABS: MANUAL DIFF FLAG NO
[2022-08-11 13:28] LABS: Basophils Percent Auto 0.2 % (0-2); Eosinophils Absolute Auto 0.1 X10*3/uL (0.0-0.4); Eosinophils Percent Auto 1.9 % (0-4); Hematocrit 39.8 % (37.0-47.0); Hemoglobin 13.2 g/dl (12.0-16.0); Imm Gran Abs Auto 0.01 X10*3/uL (0.00-0.03); Imm Gran Pct Auto 0.2 % (0.0-0.4); Lymphocytes Absolute Auto 1.3 X10*3/uL (1.2-4.9); Lymphocytes Percent Auto 30.4 % (20-40); Mean Corpuscular HGB Conc 33.2 g/dl (31.0-35.0); Mean Corpuscular Hemoglobin 32.3 pg (27.0-33.0); Mean Corpuscular Volume 97.3 fL (80.0-98.0); Mean Platelet Volume 10.3 fL (9.4-12.3); Monocytes Absolute Auto 0.3 X10*3/uL (0.1-1.2); Monocytes Percent Auto 7.1 % (2-11); Neutrophils Absolute Auto 2.6 x10*3/uL (2.0-8.3); Neutrophils Percent Auto 60.2 % (45-73); Platelet Count 141 X10*3/uL (160-400); Red Blood Count 4.09 X10*6/uL (4.20-5.50); Red Cell Distribution Width 11.9 % (11.0-16.0); White Blood Count 4.3 X10*3/uL (4.8-10.8)
[2022-08-11] MEDS: cefTRIAXone sodium 1 GM in 0.9 % Sodium Chloride 50 ML IV (13:48)
[2022-08-11] MEDS: Ketorolac Tromethamine 30 MG/ML VIAL IVPUSH (13:48)
[2022-08-11] MEDS: 0.9 % Sodium Chloride 1,000 ML 999 ML IV (13:49)
[2022-08-11 13:51] VITALS: BP 134/86; PULSE 85; RESP 18; TEMP 36.9; O2SAT 100
[2022-08-11 13:52] LABS: Alanine Aminotransferase 17 U/L (0-31); Albumin Level 3.8 g/dL (3.5-5.0); Alkaline Phosphatase 63 U/L (39-117); Anion Gap 8 (12-20); Aspartate Amino Transferase 16 U/L (5-31); Bilirubin Total 0.5 mg/dL (0.0-1.0); Blood Urea Nitrogen 19 mg/dL (9-16); Calcium 8.7 mg/dL (8.4-10.2); Carbon Dioxide 26 mmol/L (22-29); Chloride 108 mmol/L (96-108); Creatinine Clr Calc Pharmacy 95.3; Estimated Glomerular Filt Rate > 60; Glucose Random 85 mg/dL (60-115); Potassium 4.2 mmol/L (3.3-5.1); Sodium 138 mmol/L (135-145); Total Protein 6.4 g/dL (6.5-8.0)
[2022-08-11 14:37] VITALS: BP 149/83; PULSE 64; RESP 16; TEMP 36.7; O2SAT 98
== END 2022-08-11 16:18 | disposition home or self-care (01) ==
PROVIDERS: Nurse Practitioner Family; Emergency Provider Student in an Organized Health Care Education/Training Program
DX: N12 Tubulo-interstitial nephritis, not specified as acute or chronic (principal); M54.50 Low back pain, unspecified; R10.32 Left lower quadrant pain; Z79.899 Other long term (current) drug therapy
CPT/HCPCS: 36415; 74176; 80053; 81001; 81025; 85025; 87086; 87088; 87186; 96365; 96375; 99284; J0696; J1885

== ENCOUNTER 2023-01-05 11:21 | Outpatient (REF) | payer MEDICAID, SELFPAY ==
[2023-01-07 22:23] LABS: HPV mRNA E6/E7 rflx Not Detected (Not Detected)
== END 2023-01-05 11:22 | disposition home or self-care (01) ==
LOC: HO.LNP 11:21
PROVIDERS: PCP Internal Medicine; Visit Provider Obstetrics & Gynecology
DX: Z12.4 Encounter for screening for malignant neoplasm of cervix (principal); Z11.51 Encounter for screening for human papillomavirus (HPV); R10.2 Pelvic and perineal pain; R31.29 Other microscopic hematuria
CPT/HCPCS: 87086; 87088; 87186; 87624; 88142; 99202

== ENCOUNTER 2023-03-17 17:22 | Emergency (ER) | payer MEDICAID, SELFPAY ==
[2023-03-17 18:39] VITALS: BP 104/74; PULSE 60; RESP 15; TEMP 36.2; O2SAT 99; BMI 25.6
--- NOTE | 2023-03-17 18:55 | ED_ITS ---
HPI - General Adult General Chief complaint: General Medical Stated complaint: bodyaches, headache, R side leg pain Time Seen by Provider: 03/17/23 21:00 Source: patient Mode of arrival: ambulatory Limitations: no limitations History of Present Illness HPI narrative: Patient comes to the emergency room complaining of diffuse body aches and suprapubic discomfort. Patient states it started about a week ago. Also, patient complaining of right leg/lumbar pain for about a month, patient states she has a sharp pain going from the back radiating down her right leg with certain movements. Patient denies urinary/fecal incontinence/retention. Patient denies fever chills, no flank pain Related Data Previous Rx's Medication Instructions Recorded ekfkphymnf-lncklmktdlhhf-gqsedbgo 1 tab PO Q6H PRN pain #20 tabs 07/16/20 50 mg-325 mg-40 mg tablet cyclobenzaprine 10 mg tablet 10 mg PO TID PRN muscle spasm #14 07/16/20 tabs cyclobenzaprine 5 mg tablet 5 mg PO BEDTIME PRN muscle spasm 12/02/21 #4 tabs ketorolac 10 mg tablet 10 mg PO Q6H PRN pain 5 days #20 12/02/21 tabs cefpodoxime 200 mg tablet 200 mg PO BID 7 days #14 tabs 08/11/22 naproxen 500 mg tablet 500 mg PO BID PRN pain #14 tabs 08/11/22 fosfomycin tromethamine 3 gram 3 g PO ONCE 1 day #1 ea 01/07/23 oral packet cefuroxime axetil 500 mg tablet 500 mg PO BID #13 tabs 03/17/23 ibuprofen 400 mg tablet 400 mg PO TID PRN pain #14 tabs 03/17/23 Allergies Allergy/AdvReac Type Severity Reaction Status Date / Time azithromycin [AZITHROMYCIN] Allergy Intermediate DIARRHEA Verified 01/05/23 11:33 ciprofloxacin [From CIPRO] Allergy Intermediate DIARRHEA Verified 01/05/23 11:33 Review of Systems Review of Systems: Constitutional : No Weight loss, No Fever, No Chills, No Night Sweats, complaining of generalized malaise and body aches ENT/Mouth : No Hearing loss, No Ear Pain, No Nasal Congestion, No Sinus Pain, No Hoarseness, No sore throat, No Rhinorrhea, No Swallowing Difficulty Eyes: No Eye Pain, No Swelling, No Redness, No Foreign Body, No Discharge, No Vision Changes Cardiovascular : No Chest Pain, No SOB, No Dyspnea on Exertion, No Orthopnea, No Edema, No Palpitations Respiratory : No Cough, No Sputum, No Wheezing, No Smoke Exposure, No Dyspnea Gastrointestinal : No Nausea, No Vomiting, No Diarrhea, No Constipation, No abdominal Pain, No Hematochezia, No Melena Genitourinary : no irregular bleeding, No Dysuria, No Urinary Frequency, No Hematuria, No Urinary Incontinence, No Urgency, No Flank Pain, No Urinary Flow Changes, No Hesitancy Musculoskeletal : Complaining of radiating lower back pain to the right leg, c omplaining of diffuse Myalgias, No Joint Swelling Skin : No Skin Lesions, No rash Neuro : No Weakness, No Numbness, No Paresthesias, No Loss of Consciousness, No Dizziness, No Headache Psych : No Anxiety/Panic, No Depression, No SI/HI/AH/VH, No Social Issues, Heme/Lymph: No Bruising, No Bleeding,No Lymphadenopathy Endocrine : No Polyuria, No Polydipsia, No Temperature Intolerance PMFSH Past Medical History Medical History HIV (human immunodeficiency virus infection) Migraines Surgical History H/O section H/O hemorrhoidectomy History of hysterectomy Hx of colonoscopy Hx of ovarian cyst Family History Family History Father No problems noted. Mother No problems noted. Brother No problems noted. Son No problems noted. Son No problems noted. Social History Social History Alcohol intake: never Cigarettes Per Day: 6 Substance Use Type: Marijuana Advance Directives: No Advance Directives Information Provided: Yes Patient : No Physical Exam ED Vital Signs: Vital Signs - 24 hr 03/17/23 18:39 Temperature 97.1 F Pulse Rate 60 Respiratory Rate 15 Blood Pressure 104/74 Pulse Oximetry 99 Oxygen Delivery Method Room Air BMI result Body Mass Index 25.6 Const Other: Appearance: Alert. Oriented X3. No acute distress. Eyes: Pupils equal, round and reactive to light. ENT: Pharynx normal. Neck: Normal inspection. Neck supple. No lymph nodes noted. No crepitus CVS: Normal heart rate and rhythm. Pulses normal. Normal S1 and S2 Respiratory: No respiratory distress. Breath sounds normal. No Wheezing. No rales Abdomen: Soft and nontender. No rigidity. No distention. No CVA tenderness Back: Positive straight leg raise test on the right Skin: Skin warm and dry. Normal skin color. Normal skin turgor. Extremities: No lower extremity edema. No Lacerations. No Rash Neuro: Oriented X 3. No motor deficit. No sensory deficit. Moving all extremities. No slurred speech. CN 2 through 12 grossly intact Psych: calm, cooperative, normal affect Course Course Course Narrative: This is an RME: Additional HPI, ROS, PE not included below will be deferred to primary provider. This is a 60 y/o F, hx of HIV with undetectable viral load, presenting to the emergency department with complaints of body aches x 3 days. She endorsing headaches starting today. Denies fevers, chills, chest pain, shortness of breat h, nasal congestion, runny nose, sore throat. No known sick contacts Plan: Viral swabs, basic labs Medications Administered Discontinued Medications Generic Name Dose Route Start Last Admin Trade Name Freq PRN Reason Stop Dose Admin Acetaminophen 975 mg 03/17/23 20:38 03/17/23 20:48 Acetaminophen 325 Mg Tablet PO 03/17/23 20:39 975 mg ONCE ONE Administration Ondansetron HCl 4 mg 03/17/23 20:38 03/17/23 20:48 Ondansetron Odt 4 Mg Tab.Rapdis TRANSLINGU 03/17/23 20:39 4 mg ONCE ONE Administration Medical Decision Making Medical Decision Making [facility] Narrative: -my interpretation of labs: Hematology and chemistry within normal limits. Patient does have a urinary tract infection. Reviewing previous records, patient is sensitive to ceftriaxone, resistant to levofloxacin and Bactrim. -I discussed the physical exam with the patient, patient has sciatica versus herniated discs. Patient will follow-up with her primary care physician as she may need physical therapy and possibly an MRI. At this time, patient states that she does not have significant back pain radiating to the leg. -patient was given IM ceftriaxone and she will continue p.o. cefuroxime Differential Diagnosis Differential Diagnoses: The differential diagnosis associated with the presentation includes (Pyelonephritis, UTI, sciatica, herniated discs) Lab Data [facility] Lab Attestation statement: I reviewed the patient's lab results. 03/17/23 19:17 03/17/23 19:17 Labs: Lab Results 03/17/23 03/17/23 03/17/23 Range/Units 19:17 19:17 19:17 WBC 4.0 L (4.8-10.8) X10*3/uL RBC 3.95 L (4.20-5.50) X10*6/uL Hgb 13.1 (12.0-16.0) g/dl Hct 38.5 (37.0-47.0) % MCV 97.5 (80.0-98.0) fL MCH 33.2 H (27.0-33.0) pg MCHC 34.0 (31.0-35.0) g/dl RDW 12.0 (11.0-16.0) % Plt Count 121 L (160-400) X10*3/uL MPV 11.4 (9.4-12.3) fL Immature Gran % (Auto) 0.2 (0.0-0.4) % Neut % (Auto) 60.7 (45-73) % Lymph % (Auto) 28.2 (20-40) % [place] % (Auto) 7.9 (2-11) % Eos % (Auto) 2.5 (0-4) % Baso % (Auto) 0.5 (0-2) % Lymph # (Auto) 1.1 L (1.2-4.9) X10*3/uL [place] # (Auto) 0.3 (0.1-1.2) X10*3/uL Eos # (Auto) 0.1 (0.0-0.4) X10*3/uL Baso # (Auto) 0.0 (0.0-0.2) X10*3/uL Abs Immat Gran (auto) 0.01 (0.00-0.03) X10*3/uL Absolute Neuts (auto) 2.5 (2.0-8.3) x10*3/uL Absolute Nucleated RBC 0.000 (0.0-0.012) X10*3/uL Nucleated RBC % (auto) 0.0 (0.0-0.2) /100WBC Sodium 142 (135-145) mmol/L Potassium 4.1 (3.3-5.1) mmol/L Chloride 110 H (96-108) mmol/L Carbon Dioxide 23 (22-29) mmol/L Anion Gap 13 (12-20) BUN 16 (9-16) mg/dL Creatinine 0.75 (0.5-1.4) mg/dL Estim Creat Clear Calc 77.9 Estimated GFR > 60 Random Glucose 88 (60-115) mg/dL Calcium 9.1 (8.4-10.2) mg/dL Urine Color Urine Appearance Urine pH (5.0-9.0) Ur Specific [place] (1.005-1.025) Urine Protein (Neg-Trace) mg/dL Urine Glucose (UA) (Negative) mg/dL Urine Ketones (Negative) mg/dL Urine Blood (Negative) Urine Nitrite (Negative) Ur Leukocyte Esterase (Negative) Urine RBC (0-2) /HPF Urine WBC (0-5) /HPF Ur Squamous Epith Cells (0-2) /HPF Urine Bacteria (None Seen) Hyaline Casts (0-2) /LPF COVID-19 (FLORI) (Negative) COVID-19 Clin Com Influenza Type A (LULY) Negative (Negative) Influenza Type B (LULY) Negative (Negative) Influenza A & B Note See Note 03/17/23 03/17/23 Range/Units 19:17 19:17 WBC (4.8-10.8) X10*3/uL RBC (4.20-5.50) X10*6/uL Hgb (12.0-16.0) g/dl Hct (37.0-47.0) % MCV (80.0-98.0) fL MCH (27.0-33.0) pg MCHC (31.0-35.0) g/dl RDW (11.0-16.0) % Plt Count (160-400) X10*3/uL MPV (9.4-12.3) fL Immature Gran % (Auto) (0.0-0.4) % Neut % (Auto) (45-73) % Lymph % (Auto) (20-40) % [place] % (Auto) (2-11) % Eos % (Auto) (0-4) % Baso % (Auto) (0-2) % Lymph # (Auto) (1.2-4.9) X10*3/uL [place] # (Auto) (0.1-1.2) X10*3/uL Eos # (Auto) (0.0-0.4) X10*3/uL Baso # (Auto) (0.0-0.2) X10*3/uL Abs Immat Gran (auto) (0.00-0.03) X10*3/uL Absolute Neuts (auto) (2.0-8.3) x10*3/uL Absolute Nucleated RBC (0.0-0.012) X10*3/uL Nucleated RBC % (auto) (0.0-0.2) /100WBC Sodium (135-145) mmol/L Potassium (3.3-5.1) mmol/L Chloride (96-108) mmol/L Carbon Dioxide (22-29) mmol/L Anion Gap (12-20) BUN (9-16) mg/dL Creatinine (0.5-1.4) mg/dL Estim Creat Clear Calc Estimated GFR Random Glucose (60-115) mg/dL Calcium (8.4-10.2) mg/dL Urine Color Yellow Urine Appearance Clear Urine pH 7.5 (5.0-9.0) Ur Specific [place] >= 1.030 H (1.005-1.025) Urine Protein Trace (Neg-Trace) mg/dL Urine Glucose (UA) Negative (Negative) mg/dL Urine Ketones Trace (Negative) mg/dL Urine Blood Trace H (Negative) Urine Nitrite Positive H (Negative) Ur Leukocyte Esterase Negative (Negative) Urine RBC 11-20 H (0-2) /HPF Urine WBC 0-5 (0-5) /HPF Ur Squamous Epith Cells 0-2 (0-2) /HPF Urine Bacteria 4+ (None Seen) Hyaline Casts 0-2 (0-2) /LPF COVID-19 (FLORI) Negative (Negative) COVID-19 Clin Com See Note Influenza Type A (LULY) (Negative) Influenza Type B (LULY) (Negative) Influenza A & B Note External Record Review External record reviewed: Prior outpatient labs Discharge Plan Discharge Clinical Impression: UTI (urinary tract infection), Sciatica Patient Disposition: Home, Self-Care Instructions: Urinary Tract Infection in Women (ED), Sciatica (ED) Additional Instructions: Please follow-up with your primary care physician tomorrow. If you have any worsening or new symptoms, please return to the emergency room or call 911 Prescriptions: New cefuroxime axetil 500 mg tablet 500 mg PO BID Qty: 13 0RF ibuprofen 400 mg tablet 400 mg PO TID PRN (Reason: pain) Qty: 14 0RF No Action fosfomycin tromethamine 3 gram packet 3 g PO ONCE 1 Days Qty: 1 0RF cyclobenzaprine 10 mg tablet 10 mg PO TID PRN (Reason: muscle spasm) Qty: 14 0RF eowhslostq-doahxcpycymtm-aosl 50-325-40 mg tablet 1 tab PO Q6H PRN (Reason: pain) Qty: 20 0RF ketorolac 10 mg tablet 10 mg PO Q6H PRN (Reason: pain) 5 Days Qty: 20 0RF cyclobenzaprine 5 mg tablet 5 mg PO BEDTIME PRN (Reason: muscle spasm) Qty: 4 0RF cefpodoxime 200 mg tablet 200 mg PO BID 7 Days Qty: 14 0RF Rx Instructions: must administer with a meal/food naproxen 500 mg tablet 500 mg PO BID PRN (Reason: pain) Qty: 14 0RF
[2023-03-17 19:24] LABS: MANUAL DIFF FLAG NO
[2023-03-17 19:37] LABS: Appearance Urine Clear; Color Urine Yellow; Glucose Urine UA Negative (Negative); Leukocyte Esterase Urine Negative (Negative); Nitrite Urine Positive (Negative); PH 7.5 (5.0-9.0); Specific Gravity - Urine >= 1.030 (1.005-1.025); UMIC TRIGGER UACC YES; Urine Blood Trace (Negative); Urine Ketones Trace mg/dL (Negative); Urine Protein Trace mg/dL (Neg-Trace)
[2023-03-17 19:38] LABS: Anion Gap 13 (12-20); Blood Urea Nitrogen 16 mg/dL (9-16); Calcium 9.1 mg/dL (8.4-10.2); Carbon Dioxide 23 mmol/L (22-29); Chloride 110 mmol/L (96-108); Creatinine Clr Calc Pharmacy 77.9; Estimated Glomerular Filt Rate > 60; Glucose Random 88 mg/dL (60-115); Potassium 4.1 mmol/L (3.3-5.1); Sodium 142 mmol/L (135-145)
[2023-03-17 19:44] LABS: COVID-19 Test Negative (Negative); IDNOW Serial# 9DB6401D; IDNOW Serial# BCCEAD1C; Influenza A Negative (Negative); Influenza B2 Negative (Negative)
[2023-03-17 19:58] LABS: Basophils Percent Auto 0.5 % (0-2); Eosinophils Absolute Auto 0.1 X10*3/uL (0.0-0.4); Eosinophils Percent Auto 2.5 % (0-4); Hematocrit 38.5 % (37.0-47.0); Hemoglobin 13.1 g/dl (12.0-16.0); Imm Gran Abs Auto 0.01 X10*3/uL (0.00-0.03); Imm Gran Pct Auto 0.2 % (0.0-0.4); Lymphocytes Absolute Auto 1.1 X10*3/uL (1.2-4.9); Lymphocytes Percent Auto 28.2 % (20-40); Mean Corpuscular Hemoglobin 33.2 pg (27.0-33.0); Mean Corpuscular Volume 97.5 fL (80.0-98.0); Mean Platelet Volume 11.4 fL (9.4-12.3); Monocytes Absolute Auto 0.3 X10*3/uL (0.1-1.2); Monocytes Percent Auto 7.9 % (2-11); Neutrophils Absolute Auto 2.5 x10*3/uL (2.0-8.3); Neutrophils Percent Auto 60.7 % (45-73); Platelet Count 121 X10*3/uL (160-400); Red Blood Count 3.95 X10*6/uL (4.20-5.50)
[2023-03-17 20:00] LABS: Bacteria Urine 4+ (None Seen); Hyaline Casts Urine 0-2 /LPF (0-2); Squamous Epithelial Cell Urine 0-2 /HPF (0-2); UACC Culture Trigger YES; WBC Urine 0-5 /HPF (0-5)
[2023-03-17] MEDS: Acetaminophen 325 MG TABLET 975 MG PO (20:48)
[2023-03-17] MEDS: Ondansetron ODT 4 MG TAB.RAPDIS TRANSLINGU (20:48)
--- NOTE | 2023-03-17 20:51 | PC.NURSE ---
pt medicated per MAR
[2023-03-17] MEDS: cefTRIAXone sodium 1 GM, Lidocaine HCl 1 % MPF 2.1 ML IM (21:44)
== END 2023-03-17 21:45 | disposition home or self-care (01) ==
PROVIDERS: Physician Assistant Medical; Emergency Provider Emergency Medicine
DX: M79.10 Myalgia, unspecified site (principal); M54.31 Sciatica, right side; R51.9 Headache, unspecified; M79.604 Pain in right leg; N39.0 Urinary tract infection, site not specified; Z79.899 Other long term (current) drug therapy; Z20.822 Contact with and (suspected) exposure to COVID-19; Z20.828 Contact with and (suspected) exposure to other viral communicable diseases
CPT/HCPCS: 80048; 81001; 85025; 87086; 87088; 87186; 87502; 87635; 96372; 99284; J0696

== ENCOUNTER 2023-07-02 11:30 | Outpatient (REF) | payer MEDICAID, SELFPAY ==
[2023-07-02 13:44] LABS: MANUAL DIFF FLAG NO
[2023-07-02 13:48] LABS: Basophils Percent Auto 0.4 % (0-2); Eosinophils Absolute Auto 0.1 X10*3/uL (0.0-0.4); Eosinophils Percent Auto 3.7 % (0-4); Hemoglobin 12.4 g/dl (12.0-16.0); Imm Gran Abs Auto 0.01 X10*3/uL (0.00-0.03); Imm Gran Pct Auto 0.4 % (0.0-0.4); Lymphocytes Absolute Auto 0.8 X10*3/uL (1.2-4.9); Lymphocytes Percent Auto 29.3 % (20-40); Mean Corpuscular HGB Conc 32.6 g/dl (31.0-35.0); Mean Corpuscular Hemoglobin 32.9 pg (27.0-33.0); Mean Corpuscular Volume 100.8 fL (80.0-98.0); Mean Platelet Volume 11.5 fL (9.4-12.3); Monocytes Absolute Auto 0.3 X10*3/uL (0.1-1.2); Monocytes Percent Auto 9.5 % (2-11); Neutrophils Absolute Auto 1.6 x10*3/uL (2.0-8.3); Neutrophils Percent Auto 56.7 % (45-73); Platelet Count 171 X10*3/uL (160-400); Red Blood Count 3.77 X10*6/uL (4.20-5.50); Red Cell Distribution Width 12.8 % (11.0-16.0); White Blood Count 2.7 X10*3/uL (4.8-10.8)
[2023-07-05 14:34] LABS: HIV RNA PCR Qn Copies NOT DETECTED copies/mL (NOT DETECTED); HIV RNA PCR Qn Log Copies NOT DETECTED (NOT DETECTED)
== END 2023-07-02 11:31 | disposition home or self-care (01) ==
LOC: HO.HHCL 11:30
PROVIDERS: Visit Provider Nurse Practitioner Primary Care
DX: S81.831D Puncture wound without foreign body, right lower leg, subsequent encounter (principal); B20 Human immunodeficiency virus [HIV] disease
CPT/HCPCS: 36415; 85025; 87536

== ENCOUNTER 2023-09-08 12:45 | Outpatient (REF) | payer MEDICAID, SELFPAY ==
[2023-09-08 13:46] LABS: MANUAL DIFF FLAG NO
[2023-09-08 14:13] LABS: Basophils Percent Auto 0.5 % (0-2); Eosinophils Absolute Auto 0.1 X10*3/uL (0.0-0.4); Hematocrit 42.3 % (37.0-47.0); Hemoglobin 13.9 g/dl (12.0-16.0); Imm Gran Abs Auto 0.01 X10*3/uL (0.00-0.03); Imm Gran Pct Auto 0.2 % (0.0-0.4); Lymphocytes Percent Auto 23.5 % (20-40); Mean Corpuscular HGB Conc 32.9 g/dl (31.0-35.0); Mean Corpuscular Hemoglobin 32.1 pg (27.0-33.0); Mean Corpuscular Volume 97.7 fL (80.0-98.0); Mean Platelet Volume 11.9 fL (9.4-12.3); Monocytes Absolute Auto 0.2 X10*3/uL (0.1-1.2); Monocytes Percent Auto 5.4 % (2-11); Neutrophils Absolute Auto 2.8 x10*3/uL (2.0-8.3); Neutrophils Percent Auto 68.4 % (45-73); Platelet Count 149 X10*3/uL (160-400); Red Blood Count 4.33 X10*6/uL (4.20-5.50); Red Cell Distribution Width 12.6 % (11.0-16.0)
[2023-09-08 14:34] LABS: Alanine Aminotransferase 12 U/L (0-31); Albumin Level 3.9 g/dL (3.5-5.0); Alkaline Phosphatase 81 U/L (39-117); Anion Gap 11 (12-20); Aspartate Amino Transferase 12 U/L (5-31); Bilirubin Total 0.5 mg/dL (0.0-1.0); Blood Urea Nitrogen 18 mg/dL (9-16); Calcium 9.1 mg/dL (8.4-10.2); Carbon Dioxide 26 mmol/L (22-29); Chloride 108 mmol/L (96-108); Cholesterol 182 mg/dL (<200); Estimated Glomerular Filt Rate > 60; Glucose Random 91 mg/dL (60-115); HDL Cholesterol 56 mg/dL (>40); LDL Cholesterol Calculated 116 mg/dL (<100); Potassium 3.8 mmol/L (3.3-5.1); Sodium 141 mmol/L (135-145); Total Protein 7.1 g/dL (6.5-8.0); Triglycerides 53 mg/dL (<150)
[2023-09-08 15:04] LABS: Appearance Urine Cloudy; Color Urine Yellow; Glucose Urine UA Negative (Negative); Leukocyte Esterase Urine Negative (Negative); Nitrite Urine Negative (Negative); PH 5.5 (5.0-9.0); Specific Gravity - Urine >= 1.030 (1.005-1.025); UMIC TRIGGER UACC YES; Urine Blood Moderate (2+) (Negative); Urine Ketones Negative (Negative); Urine Protein Negative (Neg-Trace)
[2023-09-08 15:07] LABS: Bacteria Urine Trace (None Seen); Hyaline Casts Urine 0-2 /LPF (0-2); WBC Urine 0-5 /HPF (0-5)
[2023-09-08 16:40] LABS: Reflex LDLD? No
[2023-09-09 08:03] LABS: Syphilis Screen Nonreactive (Nonreactive)
[2023-09-09 08:16] LABS: ~HepC Num1 0.07 S/CO (0.00-0.79); ~Hepatitis C Antibody Nonreactive (Nonreactive)
[2023-09-10 10:33] LABS: Absolute CD3 Count 754 cells/uL (840-3060); Absolute CD4 Count 339 cells/uL (490-1740); Absolute CD8 Count 444 cells/uL (180-1170); Absolute Lymphocytes 955 cells/uL (850-3900); CD4 CD8 Ratio 0.76 (0.86-5.00); Percent CD3 Cells 79 % (57-85); Percent CD4 Cells 35 % (30-61); Percent CD8 Cells 47 % (12-42)
[2023-09-10 22:53] LABS: TS Negative Control Passed; TS Panel A 0; TS Panel B 0; TS Positive Control Passed; TSpotTB Negative (Negative)
== END 2023-09-08 12:46 | disposition home or self-care (01) ==
LOC: HO.HHCL 12:45
PROVIDERS: Visit Provider Student in an Organized Health Care Education/Training Program
DX: B20 Human immunodeficiency virus [HIV] disease (principal)
CPT/HCPCS: 36415; 80053; 80061; 81001; 81003; 85025; 86359; 86360; 86481; 86780; 86803

== ENCOUNTER 2023-11-15 18:47 | Outpatient (REF) | payer MEDICAID, SELFPAY | END 2023-11-15 18:48 | disposition home or self-care (01) | LOC: HO.HHCLNP 18:47 | PROVIDERS: Visit Provider Advanced Practice Midwife | DX: Z01.419 Encounter for gynecological examination (general) (routine) without abnormal findings (principal); B20 Human immunodeficiency virus [HIV] disease | CPT/HCPCS: 88112; 88142 ==

== ENCOUNTER 2023-11-26 14:01 | Outpatient (REF) | payer MEDICAID, SELFPAY ==
--- NOTE | ~2023-11-26 | US_ITS ---
EXAMINATION: US PELVIS CLINICAL INFORMATION: Hydrosalpinges. COMPARISON: None available. TECHNIQUE: Ultrasound of the pelvis is performed using both transabdominal and transvaginal transducers along with Doppler. Transvaginal imaging is performed due to inadequate visualization transabdominally. FINDINGS: Uterus: Status post hysterectomy. Adnexa: Left ovary is not visualized. No large left adnexal mass.. There is no pelvic ascites or fluid collection. Right ovary measures 2.4 x 1.4 x 1.1 cm. cm. Again seen in the right adnexal region is a tubular fluid-filled structure that may represent a hydrosalpinx versus an adnexal cyst. US/US pelvic and transvaginal IMPRESSION: Again seen in the right adnexal region is a tubular fluid-filled structure that may represent a hydrosalpinx versus an adnexal cyst. If there is clinical concern, pelvic MRI may be considered for further evaluation.
== END 2023-11-26 14:02 | disposition home or self-care (01) ==
LOC: HO.US 14:01
PROVIDERS: PCP Nurse Practitioner Primary Care; Visit Provider Advanced Practice Midwife
DX: N70.11 Chronic salpingitis (principal)
CPT/HCPCS: 76830; 76856

== ENCOUNTER 2023-12-03 13:13 | Outpatient (REF) | payer MEDICAID, SELFPAY ==
--- NOTE | ~2023-12-03 | MM_ITS ---
EXAMINATION: MM SCREENING DIGITAL BREAST TOMOSYNTHESIS, BILATERAL CLINICAL INFORMATION: Screening. Asymptomatic. COMPARISON: Mammography: This study is compared with prior exams dating back to 2021. TECHNIQUE: Digital breast tomosynthesis is performed in both the craniocaudal and mediolateral oblique views along with computer-aided detection (CAD). Synthesized 2D images are generated from the tomosynthesis. FINDINGS: The breasts are heterogeneously dense, which may obscure small masses (ACR BI-RADS breast composition Category c). There are no significant masses, abnormal calcifications, or other abnormalities. MM/MM tomosynthesis screening BI IMPRESSION: No mammographic evidence of malignancy. ASSESSMENT: BI-RADS BI-RADS 1 - Negative RECOMMENDATION: Routine annual mammography screening. 1 year F/U This examination should not preclude the clinical evaluation of a suspicious palpable abnormality. This patient's information was entered into a reminder system with a target due date for their next mammogram.
== END 2023-12-03 13:14 | disposition home or self-care (01) ==
LOC: HO.MAMMO 13:13
PROVIDERS: PCP Student in an Organized Health Care Education/Training Program; Visit Provider Advanced Practice Midwife
DX: Z12.31 Encounter for screening mammogram for malignant neoplasm of breast (principal)
CPT/HCPCS: 77063; 77067

== ENCOUNTER → 2023-12-03 13:30 | Outpatient (BNV) | payer MEDICAID, SELFPAY | PROVIDERS: PCP Student in an Organized Health Care Education/Training Program; Visit Provider Radiology Diagnostic Radiology | DX: Z12.31 Encounter for screening mammogram for malignant neoplasm of breast (principal) | CPT/HCPCS: 77063; 77067 ==

== ENCOUNTER 2023-12-15 14:04 | Outpatient (AMB) | payer MEDICAID, SELFPAY ==
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
== END 2023-12-15 15:08 | disposition home or self-care (01) ==
PROVIDERS: Visit Provider Nurse Practitioner Family
DX: R31.29 Other microscopic hematuria (principal); F17.200 Nicotine dependence, unspecified, uncomplicated
CPT/HCPCS: 99203

== ENCOUNTER 2023-12-15 14:04 | Outpatient (REF) | payer MEDICAID, SELFPAY | END 2023-12-15 14:05 | disposition home or self-care (01) | LOC: HO.LNP 14:04 | PROVIDERS: Visit Provider Nurse Practitioner Family | DX: R31.29 Other microscopic hematuria (principal); F17.200 Nicotine dependence, unspecified, uncomplicated | CPT/HCPCS: 81003; 99212 ==

== ENCOUNTER 2023-12-15 15:12 | Outpatient (REF) | payer MEDICAID, SELFPAY ==
[2023-12-15 16:25] LABS: Urine Cytology See Pathology rpt
[2023-12-15 16:34] LABS: Blood Urea Nitrogen 11 mg/dL (9-16); Estimated Glomerular Filt Rate > 60
== END 2023-12-15 15:13 | disposition home or self-care (01) ==
LOC: HO.LAB 15:12
PROVIDERS: Visit Provider Nurse Practitioner Family
DX: R31.29 Other microscopic hematuria (principal)
CPT/HCPCS: 36415; 81003; 82565; 84520; 88112; 99212

== ENCOUNTER 2024-01-18 12:52 | Outpatient (REF) | payer MEDICAID, SELFPAY ==
[2024-01-18 16:03] LABS: MANUAL DIFF FLAG NO
[2024-01-18 16:12] LABS: Basophils Percent Auto 0.3 % (0-2); Eosinophils Absolute Auto 0.1 X10*3/uL (0.0-0.4); Eosinophils Percent Auto 1.3 % (0-4); Hematocrit 41.2 % (37.0-47.0); Hemoglobin 13.9 g/dl (12.0-16.0); Imm Gran Abs Auto 0.02 X10*3/uL (0.00-0.03); Imm Gran Pct Auto 0.5 % (0.0-0.4); Lymphocytes Absolute Auto 0.9 X10*3/uL (1.2-4.9); Mean Corpuscular HGB Conc 33.7 g/dl (31.0-35.0); Mean Corpuscular Hemoglobin 33.6 pg (27.0-33.0); Mean Corpuscular Volume 99.5 fL (80.0-98.0); Mean Platelet Volume 11.8 fL (9.4-12.3); Monocytes Absolute Auto 0.2 X10*3/uL (0.1-1.2); Monocytes Percent Auto 6.4 % (2-11); Neutrophils Absolute Auto 2.5 x10*3/uL (2.0-8.3); Neutrophils Percent Auto 67.5 % (45-73); Platelet Count 141 X10*3/uL (160-400); Red Blood Count 4.14 X10*6/uL (4.20-5.50); Red Cell Distribution Width 12.2 % (11.0-16.0); White Blood Count 3.8 X10*3/uL (4.8-10.8)
[2024-01-18 16:39] LABS: Alanine Aminotransferase 12 U/L (0-31); Albumin Level 4.1 g/dL (3.5-5.0); Alkaline Phosphatase 76 U/L (39-117); Anion Gap 11 (12-20); Aspartate Amino Transferase 13 U/L (5-31); Bilirubin Total 0.4 mg/dL (0.0-1.0); Blood Urea Nitrogen 20 mg/dL (9-16); Calcium 9.3 mg/dL (8.4-10.2); Carbon Dioxide 25 mmol/L (22-29); Chloride 109 mmol/L (96-108); Estimated Glomerular Filt Rate > 60; Glucose Random 79 mg/dL (60-115); Potassium 3.6 mmol/L (3.3-5.1); Sodium 141 mmol/L (135-145); Total Protein 7.1 g/dL (6.5-8.0)
[2024-01-19 03:26] LABS: HBS Num1 1.25 mIU/mL (0-7.99); HBc Num1 0.25 S/CO (0.00-0.79); HBsAGNum1 0.29 S/CO (0.00-0.99); Hepatitis B Core Antibody Nonreactive (Nonreactive); Hepatitis B Surface Antigen Negative (Negative); ~Hepatitis B Surface Antibody NONREACTIVE (Nonreactive)
[2024-01-19 05:28] LABS: CT PCR NOT DETECTED (Not Detect.); NG PCR NOT DETECTED (Not Detect.)
[2024-01-19 23:19] LABS: Rubella IgG Antibody <0.90 Index
[2024-01-20 07:14] LABS: Absolute CD3 Count 711 cells/uL (840-3060); Absolute CD4 Count 328 cells/uL (490-1740); Absolute CD8 Count 412 cells/uL (180-1170); Absolute Lymphocytes 900 cells/uL (850-3900); Percent CD3 Cells 79 % (57-85); Percent CD4 Cells 36 % (30-61); Percent CD8 Cells 46 % (12-42)
[2024-01-20 14:23] LABS: HIV RNA PCR Qn Copies NOT DETECTED copies/mL (NOT DETECTED); HIV RNA PCR Qn Log Copies NOT DETECTED (NOT DETECTED)
== END 2024-01-18 12:53 | disposition home or self-care (01) ==
LOC: HO.HHCL 12:52
PROVIDERS: Visit Provider Student in an Organized Health Care Education/Training Program
DX: B20 Human immunodeficiency virus [HIV] disease (principal)
CPT/HCPCS: 0353U; 36415; 80053; 85025; 86359; 86360; 86704; 86706; 86735; 86762; 86765; 87340; 87536

== ENCOUNTER 2024-01-24 14:36 | Outpatient (AMB) | payer MEDICAID, SELFPAY ==
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
== END 2024-01-24 15:24 | disposition home or self-care (01) ==
PROVIDERS: Visit Provider Urology
DX: R31.29 Other microscopic hematuria (principal); F17.200 Nicotine dependence, unspecified, uncomplicated; Z13.9 Encounter for screening, unspecified
CPT/HCPCS: 52000

== ENCOUNTER → 2024-01-24 14:36 | Outpatient (BNVA) | payer MEDICAID, SELFPAY | PROVIDERS: Visit Provider Urology | DX: R31.29 Other microscopic hematuria (principal); F17.210 Nicotine dependence, cigarettes, uncomplicated | CPT/HCPCS: 52000; 81003 ==

== ENCOUNTER 2024-03-13 13:46 | Outpatient (REF) | payer MEDICAID, SELFPAY ==
[2024-03-14 22:18] LABS: Trichomonas vaginalis RNA NOT DETECTED (NOT DETECTED)
== END 2024-03-13 13:47 | disposition home or self-care (01) ==
LOC: HO.HHCLNP 13:46
PROVIDERS: Visit Provider Student in an Organized Health Care Education/Training Program
DX: B20 Human immunodeficiency virus [HIV] disease (principal)
CPT/HCPCS: 36415; 87661

== ENCOUNTER 2024-07-10 10:34 | Outpatient (REF) | payer MEDICAID, SELFPAY ==
[2024-07-10 13:17] LABS: Appearance Urine Turbid; Color Urine Dark Yellow; Glucose Urine UA Negative (Negative); Leukocyte Esterase Urine Trace (Negative); Nitrite Urine Positive (Negative); Specific Gravity - Urine >= 1.030 (1.005-1.025); UMIC TRIGGER UACC YES; Urine Blood Moderate (2+) (Negative); Urine Ketones Trace mg/dL (Negative); Urine Protein Trace mg/dL (Neg-Trace)
[2024-07-10 13:27] LABS: MANUAL DIFF FLAG NO
[2024-07-10 13:31] LABS: Bacteria Urine 4+ (None Seen); Basophils Percent Auto 0.3 % (0-2); Eosinophils Absolute Auto 0.1 X10*3/uL (0.0-0.4); Eosinophils Percent Auto 2.2 % (0-4); Hematocrit 41.2 % (37.0-47.0); Hemoglobin 13.6 g/dl (12.0-16.0); Imm Gran Abs Auto 0.01 X10*3/uL (0.00-0.03); Imm Gran Pct Auto 0.3 % (0.0-0.4); Lymphocytes Absolute Auto 0.7 X10*3/uL (1.2-4.9); Lymphocytes Percent Auto 21.4 % (20-40); Mean Corpuscular Hemoglobin 32.6 pg (27.0-33.0); Mean Corpuscular Volume 98.8 fL (80.0-98.0); Mean Platelet Volume 11.9 fL (9.4-12.3); Monocytes Absolute Auto 0.2 X10*3/uL (0.1-1.2); Monocytes Percent Auto 7.5 % (2-11); Neutrophils Absolute Auto 2.2 x10*3/uL (2.0-8.3); Neutrophils Percent Auto 68.3 % (45-73); Platelet Count 153 X10*3/uL (160-400); Red Blood Count 4.17 X10*6/uL (4.20-5.50); Red Cell Distribution Width 12.3 % (11.0-16.0); UACC Culture Trigger YES; White Blood Count 3.2 X10*3/uL (4.8-10.8)
[2024-07-10 13:42] LABS: Estimated Average Glucose 91 mg/dL; Hemoglobin A1C 101.2506 umol/L; Hemoglobin A1c % 4.8 % (<6.0); Total Hemoglobin (HGBA1C) 3508.5726 umol/L
[2024-07-10 14:01] LABS: Alanine Aminotransferase 13 U/L (0-31); Albumin Level 3.8 g/dL (3.5-5.0); Alkaline Phosphatase 80 U/L (39-117); Anion Gap 11 (12-20); Aspartate Amino Transferase 21 U/L (5-31); Bilirubin Total 0.8 mg/dL (0.0-1.0); Blood Urea Nitrogen 14 mg/dL (9-16); Calcium 9.1 mg/dL (8.4-10.2); Carbon Dioxide 27 mmol/L (22-29); Chloride 106 mmol/L (96-108); Cholesterol 182 mg/dL (<200); Estimated Glomerular Filt Rate > 60; Glucose Random 87 mg/dL (60-115); HDL Cholesterol 50 mg/dL (>40); LDL Cholesterol Calculated 117 mg/dL (<100); Potassium 3.6 mmol/L (3.3-5.1); Sodium 140 mmol/L (135-145); Total Protein 6.6 g/dL (6.5-8.0); Triglycerides 77 mg/dL (<150)
[2024-07-10 14:16] LABS: Reflex LDLD? No
[2024-07-11 08:20] LABS: ~Hepatitis C Antibody Nonreactive (Nonreactive)
[2024-07-11 08:26] LABS: Syphilis Screen Nonreactive (Nonreactive)
[2024-07-11 11:24] LABS: Varicella IgG Antibody <1.00 S/CO
[2024-07-11 15:43] LABS: HIV RNA PCR Qn Copies NOT DETECTED copies/mL (NOT DETECTED); HIV RNA PCR Qn Log Copies NOT DETECTED (NOT DETECTED)
[2024-07-13 03:54] LABS: TS Negative Control Passed; TS Panel A 0; TS Panel B 0; TS Positive Control Passed; TSpotTB Negative (Negative)
[2024-07-15 17:42] LABS: Absolute CD3 Count 512 cells/uL (840-3060); Absolute CD4 Count 265 cells/uL (490-1740); Absolute CD8 Count 256 cells/uL (180-1170); Absolute Lymphocytes 612 cells/uL (850-3900); CD4 CD8 Ratio 1.03 (0.86-5.00); Percent CD3 Cells 84 % (57-85); Percent CD4 Cells 43 % (30-61); Percent CD8 Cells 42 % (12-42)
== END 2024-07-10 10:35 | disposition home or self-care (01) ==
LOC: HO.HHCL 10:34
PROVIDERS: Visit Provider Student in an Organized Health Care Education/Training Program
DX: Z21 Asymptomatic human immunodeficiency virus [HIV] infection status (principal)
CPT/HCPCS: 36415; 80053; 80061; 81001; 83036; 85025; 86359; 86360; 86481; 86780; 86787; 86803; 87086; 87536

== ENCOUNTER 2024-07-17 15:40 | Outpatient (REF) | payer MEDICAID, SELFPAY ==
[2024-07-17] MEDS: iohexoL 350 MG/ML 100 ML INFUS..BTL 85 ML IV (16:46)
== END 2024-07-17 15:41 | disposition home or self-care (01) ==
LOC: HO.CT 15:40
PROVIDERS: PCP Student in an Organized Health Care Education/Training Program; Visit Provider Nurse Practitioner Family
DX: R31.29 Other microscopic hematuria (principal)
CPT/HCPCS: 74178; Q9967

== ENCOUNTER → 2024-07-17 15:42 | Outpatient (BNV) | payer MEDICAID, SELFPAY | PROVIDERS: PCP Student in an Organized Health Care Education/Training Program; Visit Provider Radiology Diagnostic Radiology | DX: R31.29 Other microscopic hematuria (principal) | CPT/HCPCS: 74178 ==

== ENCOUNTER 2024-09-07 12:23 | Outpatient (REF) | payer MEDICAID, SELFPAY ==
[2024-09-07 13:52] LABS: Appearance Urine Cloudy; Color Urine Yellow; Glucose Urine UA Negative (Negative); Leukocyte Esterase Urine Negative (Negative); Nitrite Urine Positive (Negative); PH 6.5 (5.0-9.0); UMIC TRIGGER UACC YES; Urine Blood Small (1+) (Negative); Urine Ketones Negative (Negative); Urine Protein Negative (Neg-Trace)
[2024-09-07 13:56] LABS: Bacteria Urine 4+ (None Seen); Hyaline Casts Urine 0-2 /LPF (0-2); UACC Culture Trigger YES; WBC Urine 0-5 /HPF (0-5)
== END 2024-09-07 12:24 | disposition home or self-care (01) ==
LOC: HO.HHCL 12:23
PROVIDERS: Visit Provider Nurse Practitioner Primary Care
DX: R82.90 Unspecified abnormal findings in urine (principal)
CPT/HCPCS: 81001; 87086; 87088; 87186

== ENCOUNTER 2024-09-07 14:21 | Outpatient (AMB) | payer MEDICAID, SELFPAY ==
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
== END 2024-09-07 15:50 | disposition home or self-care (01) ==
LOC: HO.HUSH 14:21
PROVIDERS: PCP Student in an Organized Health Care Education/Training Program; Visit Provider Urology
DX: R31.29 Other microscopic hematuria (principal); N94.9 Unspecified condition associated with female genital organs and menstrual cycle; N28.1 Cyst of kidney, acquired
CPT/HCPCS: 99214

== ENCOUNTER 2024-11-14 13:44 | Outpatient (REF) | payer MEDICAID, SELFPAY ==
--- OUTSIDE RECORDS SUMMARY | 2024-11-14 16:21 | XMS_ITS | Clinical Summary ---
Author Organization [address] [facility] Address [address] [place] [address] Phone Care Team Providers Care Superintendent Communications Name Role Phone RadhaLuzma Olegario PETERS Primary Care Provider [phone] Allergies No known active allergies Medications albuterol HFA (PROAIR HFA ; PROVENTIL HFA ; VENTOLIN HFA) 90 mcg/actuation inhaler Inhale 2 puffs by mouth every 6 (six) hours if needed for wheezing. Active aspirin 81 mg chewable tablet Chew 1 tablet (81 mg total) 1 (one) time each day. Active bictegravir-emtr icitabine-tenofo vir alafenamide (BIKTARVY) 50-200-25 mg per tablet Take 1 tablet by mouth 1 (one) time each day. Active buPROPion SR (WELLBUTRIN SR) 150 mg 12 hr tablet Take 1 tablet (150 mg total) by mouth 2 (two) times a day. Do not crush, chew, or split. Active cholecalciferol (VITAMIN D-3) 50 mcg (2,000 unit) tablet Take 1 tablet (2,000 Units total) by mouth 1 (one) time each day. Active escitalopram (LEXAPRO) 10 mg tablet Take 1 tablet (10 mg total) by mouth 1 (one) time each day. Active esomeprazole (NexIUM) [address] capsule Take 1 capsule (20 mg total) by mouth 1 (one) time each day before breakfast. Do not open capsule. Active fluticasone-salm eterol (ADVAIR DISKUS) 250-50 mcg/dose diskus inhaler Inhale 1 puff by mouth 2 (two) times a day. Rinse mouth with water after use to reduce aftertaste and incidence of candidiasis. Do not swallow. Active gabapentin (NEURONTIN) 300 mg capsule Take 1 capsule (300 mg total) by mouth 3 (three) times a day. Active hydrOXYzine HCL (ATARAX) 25 mg tablet Take 1 tablet (25 mg total) by mouth. Active zolpidem (AMBIEN) 10 mg tablet Take 1 tablet (10 mg total) by mouth at bedtime as needed for sleep. Max Daily Amount: 10 mg Active varenicline (CHANTIX) 1 mg tablet Take 1 tablet (1 mg total) by mouth 2 (two) times daily after breakfast and dinner. Take with full glass of water. Active traZODone (DESYREL) 100 mg tablet Take 1 tablet (100 mg total) by mouth at bedtime. Active tolnaftate (TINACTIN) 1 % external solution Apply topically at bedtime. Active terbinafine (LamISIL) 250 mg tablet Take 1 tablet (250 mg total) by mouth 1 (one) time each day. Active oxyCODONE (ROXICODONE) 10 mg immediate release tablet Take 1 tablet (10 mg total) by mouth. Active Active Problems Problem Noted Date Diagnosed Date Anxiety and depression 07/21/2024 Insomnia 07/21/2024 Neuropathy involving both lower extremities 01/2024 Vascular insufficiency 07/21/2024 HIV infection 07/21/2024 Cyst of kidney, acquired 07/21/2024 GERD (gastroesophageal reflux disease) Social History Tobacco Use Types Packs/Day Years Used Date Smoking Tobacco: Never Assessed Comments Unknown Sex and Gender Information Value Date Recorded Sex Assigned at Not on file Legal Sex Female 7:33 PM EST Gender Identity Not on file Sexual Orientation Not on file Last Filed Vital Signs Vital Sign Reading Time Taken Comments Blood Pressure 121/75 08/01/2024 1:48 AM EST Pulse 68 08/01/2024 1:48 AM EST Temperature 36.2 ??C (97.2 ??F) 08/01/2024 1:48 AM ES T Respiratory Rate 14 08/01/2024 1:48 AM EST Oxygen Saturation 100% 08/01/2024 1:48 AM EST Inhaled Oxygen Concentration - - Weight 85.3 kg (188 lb) 07/31/2024 4:07 PM EST Height 167.6 cm (5' 6 ) 07/31/2024 4:07 PM EST Body Mass Index 30.34 07/31/2024 4:07 PM EST Plan of Treatment Health Maintenance Due Date Last Done Comments Breast Cancer Screening 1979 Meningococcal ACWY Vaccine (1 - Risk 2-dose series) 1981 COVID-19 Vaccine (#1) 1984 MMR Vaccines (1 of 2 - Risk 2-dose series) 1997 Cervical Cancer Screening: Pap Smear 2000 Pneumococcal Vaccine: Pediatrics (0 to 5 Years) and At-Risk Patients (6 to 64 Years) (3 of 3 - PPSV23, PCV20 or PCV21) 08/07/2016 01/10/2013, 08/07/2011 DTaP,Tdap,and Td Vaccines (2 - Td or Tdap) 08/07/2021 08/07/2011 Colorectal Cancer Screening: Colonoscopy 05/23/2024 Depression Screening 05/23/2024 Hepatitis C Screening 05/23/2024 Social Influencers of Health Screening 05/23/2024 Influenza Vaccine (Season Ended) 2025 06/25/2014 Hepatitis A Vaccines Completed 01/15/2015, 06/25/2014, 09/15/2012, Additional history exists Hepatitis B Vaccines Completed 02/14/2015, 01/15/2015, 06/25/2014, Additional history exists HIB Vaccines Aged Out No longer eligi ble based on patient's age to complete this topic HPV Vaccines Aged Out No longer eligi ble based on patient's age to complete this topic IPV Vaccines Aged Out No longer eligi ble based on patient's age to complete this topic Meningococcal B Vacine Aged Out No lo nger eligible based on patient's age to complete this topic RSV Immunization Patients Under 20 months Aged Out No longer eligible based on patient's age to complete this topic Varicella Vaccines Aged Out No longer eligible based on patient's age to complete this topic Insurance [place] - [place] Care Teams Superintendent Communications Relationship Specialty Start Date End Date Luzma Garcia NP [address] [place] [phone] PCP - General 04/27/24
[2024-11-14 18:34] LABS: Folate 9.5 ng/mL (> or = 4.0); Vitamin B12 338 pg/mL (200-900)
[2024-11-15 08:40] LABS: Syphilis Screen Nonreactive (Nonreactive)
[2024-11-16 12:44] LABS: C. trachomatis RNA TMA NOT DETECTED (NOT DETECTED); N. gonorrhoeae RNA TMA NOT DETECTED (NOT DETECTED)
[2024-11-16 14:38] LABS: Trichomonas (NAAT) NOT DETECTED (NOT DETECTED)
[2024-11-22 14:57] LABS: HPV Genotype 16 Negative (Negative); HPV Genotype 18 Negative (Negative); HPV High Risk Negative (Negative)
== END 2024-11-14 13:45 | disposition home or self-care (01) ==
LOC: HO.HHCL 13:44
PROVIDERS: Nurse Practitioner Primary Care; Visit Provider Advanced Practice Midwife
DX: B20 Human immunodeficiency virus [HIV] disease (principal); R85.610 Atypical squamous cells of undetermined significance on cytologic smear of anus (ASC-US); Z11.3 Encounter for screening for infections with a predominantly sexual mode of transmission; D75.89 Other specified diseases of blood and blood-forming organs; R82.90 Unspecified abnormal findings in urine
CPT/HCPCS: 36415; 82607; 82746; 86780; 87086; 87491; 87591; 87626; 87661; 88112; 88175

== ENCOUNTER 2024-12-01 13:54 | Outpatient (REF) | payer MEDICAID, SELFPAY ==
--- NOTE | ~2024-12-01 | US_ITS ---
EXAMINATION: US PELVIS CLINICAL INFORMATION: Right hydrosalpinx. COMPARISON: 11/17/2021, 11/26/[address] abdomen and pelvis 08-08. TECHNIQUE: Ultrasound of the pelvis is performed using both transabdominal and transvaginal transducers along with Doppler. Transvaginal imaging is performed due to inadequate visualization transabdominally. FINDINGS: Uterus: The uterus is surgically absent. Adnexa: The right ovary was visualized. Normal color Doppler flow to the right ovary. No evidence of ovarian torsion.. There is no pelvic ascites or fluid collection. Redemonstration of a tubular cystic structure adjacent to the right ovary measuring 6.3 x 2.4 x 2.1 cm, consistent with a hydrosalpinx. This appears largely stable from prior examination. Right ovary measures 3.0 x 1.7 x 1.3 cm. Volume = 3.5 mL. Normal sonographic appearance. Left ovary could not be visualized. US/US pelvic and transvaginal IMPRESSION: 1. Uterus surgically absent. 2. Normal right ovary. Left ovary could not be visualized. 3. Stable simple hydrosalpinx right adnexa measuring approximately 6.3 x 2.4 x 2.1 cm. This appears largely unchanged from the prior exam. Electronically signed by: Nikolas Cuevas MD 12/01/2024 02:44 PM EDT
--- OUTSIDE RECORDS SUMMARY | 2024-12-01 14:17 | XMS_ITS | Clinical Summary ---
Author Organization [address] [facility] Address [address] [place] [address] Phone Care Team Providers Care Marriage And Family Social Worker Name Role Phone RadhaLuzma Olegario PETERS Primary Care Provider [phone] Allergies No known active allergies Medications albuterol [...] extremities 01/2024 Vascular insufficiency 07/21/2024 HIV infection ([facility] V24, [facility] V28) 024 Cyst of kidney, acquired 07/21/2024 GERD (gastroesophageal [...] age to complete this topic Meningococcal B Vaccine Aged Out No l onger eligible based on patient's age to complete this topic RSV Immunization Patients Under 20 months Aged Out No longer eligible based on patient's age to complete this topic Varicella Vaccines Aged Out No longer eligible based on patient's age to complete this topic [place] Care Teams Marriage And Family Social Worker Relationship Specialty Start Date End Date Luzma Garcia NP [address] [place] [phone] PCP - General 04/27/24
== END 2024-12-01 13:55 | disposition home or self-care (01) ==
LOC: HO.HMGCX 13:54
PROVIDERS: PCP Student in an Organized Health Care Education/Training Program; Visit Provider Advanced Practice Midwife
DX: N83.8 Other noninflammatory disorders of ovary, fallopian tube and broad ligament (principal)
CPT/HCPCS: 76830; 76856

== ENCOUNTER → 2024-12-01 13:57 | Outpatient (BNV) | payer MEDICAID, SELFPAY | PROVIDERS: PCP Student in an Organized Health Care Education/Training Program; Visit Provider Radiology Diagnostic Radiology | DX: N83.8 Other noninflammatory disorders of ovary, fallopian tube and broad ligament (principal); Z90.710 Acquired absence of both cervix and uterus | CPT/HCPCS: 76830; 76856 ==

== ENCOUNTER 2024-12-25 13:01 | Outpatient (REF) | payer MEDICAID, SELFPAY ==
--- OUTSIDE RECORDS SUMMARY | 2024-12-25 13:21 | XMS_ITS | Clinical Summary ---
Author Organization [address] [facility] Address [address] [place] [address] Phone Care Team Providers Care Grain Cleaner And Transfer Operator Name Role Phone RadhaLuzma Olegario PETERS Primary Care Provider [phone] Allergies No known active allergies Medications albuterol [...] extremities 01/2024 Vascular insufficiency 07/21/2024 HIV infection ([facility] V24, [facility] V28) 024 Cyst of kidney, acquired [...] to complete this topic Insurance MEDICAID - [place] Care Teams Grain Cleaner And Transfer Operator Relationship Specialty Start Date End Date Luzma Garcia NP [address] [place] [phone] PCP - General 04/27/24
[2024-12-25 16:11] LABS: MANUAL DIFF FLAG NO
[2024-12-25 16:18] LABS: Basophils Percent Auto 0.3 % (0-2); Eosinophils Percent Auto 0.5 % (0-4); Hematocrit 43.1 % (37.0-47.0); Hemoglobin 14.3 g/dl (12.0-16.0); Imm Gran Abs Auto 0.02 X10*3/uL (0.00-0.03); Imm Gran Pct Auto 0.3 % (0.0-0.4); Lymphocytes Absolute Auto 0.9 X10*3/uL (1.2-4.9); Lymphocytes Percent Auto 12.5 % (20-40); Mean Corpuscular HGB Conc 33.2 g/dl (31.0-35.0); Mean Corpuscular Hemoglobin 32.8 pg (27.0-33.0); Mean Corpuscular Volume 98.9 fL (80.0-98.0); Mean Platelet Volume 11.9 fL (9.4-12.3); Monocytes Absolute Auto 0.2 X10*3/uL (0.1-1.2); Monocytes Percent Auto 3.3 % (2-11); Neutrophils Absolute Auto 6.1 x10*3/uL (2.0-8.3); Neutrophils Percent Auto 83.1 % (45-73); Platelet Count 153 X10*3/uL (160-400); Red Blood Count 4.36 X10*6/uL (4.20-5.50); Red Cell Distribution Width 11.9 % (11.0-16.0); White Blood Count 7.4 X10*3/uL (4.8-10.8)
[2024-12-25 16:38] LABS: Alanine Aminotransferase 22 U/L (0-31); Anion Gap 13 (12-20); Aspartate Amino Transferase 21 U/L (5-31); Bilirubin Total 0.6 mg/dL (0.0-1.0); Blood Urea Nitrogen 11 mg/dL (9-16); Calcium 9.3 mg/dL (8.4-10.2); Carbon Dioxide 27 mmol/L (22-29); Chloride 104 mmol/L (96-108); Estimated Glomerular Filt Rate > 60; Glucose Random 101 mg/dL (60-115); Potassium 3.8 mmol/L (3.3-5.1); Sodium 140 mmol/L (135-145); Total Protein 7.1 g/dL (6.5-8.0)
[2024-12-25 16:48] LABS: Alkaline Phosphatase 100 U/L (39-117)
[2024-12-26 14:09] LABS: HIV RNA PCR Qn Copies <20 DETECTED copies/mL (NOT DETECTED); HIV RNA PCR Qn Log Copies <1.30 DETECTED (NOT DETECTED)
[2024-12-29 17:03] LABS: Absolute CD3 Count 679 cells/uL (840-3060); Absolute CD4 Count 305 cells/uL (490-1740); Absolute CD8 Count 397 cells/uL (180-1170); Absolute Lymphocytes 788 cells/uL (850-3900); CD4 CD8 Ratio 0.77 (0.86-5.00); Percent CD3 Cells 86 % (57-85); Percent CD4 Cells 39 % (30-61); Percent CD8 Cells 50 % (12-42)
== END 2024-12-25 13:02 | disposition home or self-care (01) ==
LOC: HO.HHCL 13:01
PROVIDERS: Visit Provider Student in an Organized Health Care Education/Training Program
DX: Z21 Asymptomatic human immunodeficiency virus [HIV] infection status (principal)
CPT/HCPCS: 36415; 80053; 85025; 86359; 86360; 87536

== ENCOUNTER 2025-02-21 19:37 | Emergency (ER) | payer MEDICAID, SELFPAY ==
--- NOTE | ~2025-02-21 | XR_ITS ---
CLINICAL HISTORY: pain 3 views lumbar spine Comparison: None provided Findings: Normal alignment. No acute fractures or dislocation. Moderate spondylosis at L4-L5 and L5-S1 levels with disc space narrowing, and facet arthropathy. IMPRESSION: No acute findings. Moderate spondylosis at L4-L5 and L5-S1 levels. This document has been electronically signed by: Neftaly Reyes MD on 02/21/2025 21:09:29
--- NOTE | ~2025-02-21 | XR_ITS ---
CLINICAL HISTORY: pain 4 views sacrum and coccyx Comparison: None provided Findings No acute fractures. No significant degenerative change. No erosions. IMPRESSION: No acute findings This document has been electronically signed by: Neftaly Reyes MD on 02/21/2025 21:10:17
[2025-02-21 19:47] VITALS: BP 93/60; PULSE 90; RESP 20; TEMP 36.8; O2SAT 96; BMI 22.6
--- NOTE | 2025-02-21 19:53 | ED_ITS ---
HPI - Back Pain/Injury General Chief Complaint: Back Pain/Injury Stated Complaint: Lt side back pain to leg Time Seen by Provider: 02/21/25 22:42 Source: patient Limitations: language barrier History of Present Illness ED Provider: Megan Garcia PA-C HPI Narrative: 44-year-old female presents with back pain. Patient states she was at work bending over when she developed acute onset pain. Pain over right lumbar region with radiation down the right lower extremity. Associated paresthesia. Denies urinary retention, bowel incontinence or weakness of lower extremities. Related Data Home Medications ?Medication ?Instructions ?Recorded ?Confirmed albuterol sulfate 90 mcg/actuation 2 puff inhalation Q 4H PRN 12/15/23 aerosol inhaler (Ventolin HFA) bictegravir 50 mg-emtricitabine 1 tab PO QAM 12/15/23 200 mg-tenofovir alafenam 25 mg tablet (Biktarvy) cholecalciferol (vitamin D3) 50 50 mcg PO QAM 12/15/23 mcg (2,000 unit) capsule (Vitamin D3) fluticasone 250 mcg-salmeterol 50 1 ea inhalation Q12H 12/15/23 mcg/dose blistr powdr for inhalation (Advair Diskus) gabapentin 300 mg capsule 300 mg PO BEDTIME 12/15/23 oxycodone 10 mg tablet 10 mg PO Q8-12H PRN severe p ain 12/15/23 varenicline tartrate 1 mg tablet 1 mg PO Q12H 12/15/23 zolpidem 10 mg tablet 10 mg PO BEDTIME PRN insomni a 12/15/23 Previous Rx's ?Medication ?Instructions ?Recorded ketorolac 10 mg tablet 10 mg PO Q6H PRN pain #20 ta bs 02/21/25 methylprednisolone 4 mg tablets in 4 mg PO QAM #21 ea 02/21/25 a dose pack (Medrol (Mekhi)) Allergies Allergy/AdvReac Type Severity Reaction Status Date / Time azithromycin (AZITHROMYCIN) Allergy Intermediate DIARRHEA Verified 02/21/25 19:51 ciprofloxacin (From CIPRO) Allergy Intermediate DIARRHEA Verified 02/21/25 19:51 Review of Systems Review of Systems: Yes all other systems are reviewed and are negative Constitutional: Constitutional: Denies fatigue and Denies fever(s) Gastrointestinal: Gastrointestinal: Denies abdominal pain Musculoskeletal: Musculoskeletal: Reports back pain, Denies muscle weakness, Denies numbness, Reports radiating pain into limb and Reports tingling Neurologic: Denies numbness and Reports tingling Endocrine: Endocrine: Denies fatigue PMFSH Past Medical History Attestation statement: The following information was validated with the patient. Medical History Migraines HIV (human immunodeficiency virus infection) Surgical History H/O hemorrhoidectomy Hx of colonoscopy History of hysterectomy Hx of ovarian cyst H/O section Family History Family History Father No problems noted. Mother No problems noted. Brother No problems noted. Son No problems noted. Son No problems noted. Social History Social History Alcohol intake: never Cigarettes Per Day: 6 Substance Use Type: Marijuana Advance Directives: No Advance Directives Information Provided: No Physical Exam Vital Signs: Vital Signs: Last Vital Signs Temp 97.5 F 02/21/25 23:24 Pulse 60 02/21/25 23:24 Resp 14 02/21/25 23:24 BP 106/73 02/21/25 23:24 Pulse Ox 98 02/21/25 23:24 O2 Del Method Room Air 02/21/25 23:24 BMI result Body Mass Index 22.6 Const: Other: Alert Orientation/consciousness: patient oriented x3 Resp: Effort & Inspection: normal respiratory effort Cardio: Other: Normal peripheral perfusion Skin: Other: Warm dry no rash Neuro: Other: Antalgic gait General: patient oriented x3, no focal motor deficits and CN's II-XI intact bilaterally Psych: Other: Cooperative Course Course Course Narrative: This is an RME: Additional HPI, ROS, PE not included below will be deferred to primary provider. RME assessment and note performed by: Reena Lindsey PA-C This is a 44-year-old female who presents emergency department for evaluation of left low back pain. Patient states that she was bending over at work to pick something up and suddenly developed pain in her left low back which radiates into her right low back and down her right leg. Plan: X-rays, further ER evaluation needed Medications Administered Discontinued Medications Generic Name Dose Route Start Last Admin Trade Name Clifton PRN Reason Stop Dose Admin Acetaminophen 650 mg 02/21/25 21:31 02/21/25 21:34 Acetaminophen 325 Mg Tablet PO 02/21/25 21:32 650 mg ONCE ONE Administration Ketorolac Tromethamine 15 mg 02/21/25 23:13 02/21/25 23:25 Ketorolac Tromethamine 15 Mg/Ml Vial IM 02/21/25 23:14 15 mg ONCE ONE Administration Methocarbamol 1,500 mg 02/21/25 23:13 02/21/25 23:25 Methocarbamol 750 Mg Tablet PO 02/21/25 23:14 1,500 mg ONCE ONE Administration Prednisone 20 mg 02/21/25 23:13 02/21/25 23:25 Prednisone 20 Mg Tablet PO 02/21/25 23:14 20 mg ONCE ONE Administration Medical Decision Making Medical Decision Making MDM Narrative: 44-year-old female presents with back pain. Patient states she was at work bending over when she developed acute onset pain. Pain over right lumbar region with radiation down the right lower extremity. Associated paresthesia. Denies urinary retention, bowel incontinence or weakness of lower extremities. No chronic issues History: Per patient I have considered the following differential diagnoses: Lumbar strain, lumbar radiculopathy, cauda equina, compression fracture Plan: X-rays were ordered from triage, the patient has a arthritis, no other injury. She is having radicular symptoms without red flag signs symptoms concerning for cord compression, we will treat for sciatica. I have independently reviewed the following tests: X-ray lumbar spine:MPRESSION: No acute findings. Moderate spondylosis at L4-L5 and L5-S1 levels. X-ray sacrum:Findings No acute fractures. No significant degenerative change. No erosions. IMPRESSION: No acute findings Discharge Plan Discharge Clinical Impression: Acute right lumbar radiculopathy Patient Disposition: Home, Self-Care Instructions: Lumbar Radiculopathy (ED) Additional Instructions: The x-rays of your low back and sacrum were negative for acute injury, you do have arthritic changes. You are being treated for sciatica. See home care instructions. Take the Medrol Dosepak as directed this is an anti-inflammatory. Take the ketorolac as directed this is an anti-inflammatory. Use the methocarbamol as needed this is a muscle relaxant. This medication will cause drowsiness do not drive or operate machinery while taking the medication. You need to follow up with primary care provider, you may require physical therapy as an outpatient. Prescriptions: New methylprednisolone [Medrol (Mekhi)] 4 mg tablets,dose pack 4 mg PO QAM Qty: 21 0RF Rx Instructions: Take per package instructions ketorolac 10 mg tablet 10 mg PO Q6H PRN (Reason: pain) Qty: 20 0RF Rx Instructions: maximum total duration of 5 days from all oral, intranasal, or parenteral formulations, the patient received an intramuscular dose of Toradol here in the emergency room No Action zolpidem 10 mg tablet 10 mg PO BEDTIME PRN (Reason: insomnia) oxycodone 10 mg tablet 10 mg PO Q8-12H PRN (Reason: severe pain) Biktarvy 50-200-25 mg tablet 1 tab PO QAM varenicline tartrate 1 mg tablet 1 mg PO Q12H albuterol sulfate [Ventolin HFA] 90 mcg/actuation HFA aerosol inhaler 2 puff inhalation Q4H PRN gabapentin 300 mg capsule 300 mg PO BEDTIME fluticasone propion-salmeterol [Advair Diskus] 250-50 mcg/dose blister with device 1 ea inhalation Q12H cholecalciferol (vitamin D3) [Vitamin D3] 50 mcg (2,000 unit) capsule 50 mcg PO QAM Stand Alone Forms: Work/School Release Print Language: Colombian
[2025-02-21 23:24] VITALS: BP 106/73; PULSE 60; RESP 14; TEMP 36.4; O2SAT 98
[2025-02-22 00:17] VITALS: BP 106/73; PULSE 60; RESP 14; TEMP 36.4; O2SAT 98
== END 2025-02-22 00:18 | disposition home or self-care (01) ==
PROVIDERS: Emergency Provider Emergency Medicine; PCP Nurse Practitioner Primary Care
DX: M54.16 Radiculopathy, lumbar region (principal); R20.2 Paresthesia of skin; M54.50 Low back pain, unspecified; M79.605 Pain in left leg; M53.3 Sacrococcygeal disorders, not elsewhere classified; Z79.899 Other long term (current) drug therapy
CPT/HCPCS: 72100; 72220; 96372; 99284; J1885

== ENCOUNTER → 2025-02-21 19:53 | Outpatient (BNV) | payer MEDICAID, SELFPAY | PROVIDERS: PCP Nurse Practitioner Primary Care; Visit Provider Student in an Organized Health Care Education/Training Program | DX: M47.816 Spondylosis without myelopathy or radiculopathy, lumbar region (principal); M53.3 Sacrococcygeal disorders, not elsewhere classified | CPT/HCPCS: 72100; 72220 ==

== ENCOUNTER 2025-03-13 14:42 | Outpatient (REF) | payer MEDICAID, SELFPAY ==
--- OUTSIDE RECORDS SUMMARY | 2025-03-13 15:27 | XMS_ITS | Clinical Summary ---
Author Organization [address] [facility] Address [address] [place] [address] Phone Care Team Providers Care Print Shop Chief Clerk Name Role Phone RadhaLuzma Olegario PETERS Primary Care Provider [phone] Allergies No known active allergies Medications albuterol [...] extremities 01/2024 Vascular insufficiency 07/21/2024 HIV infection ([facility] V24, [facility] V28) 024 Cyst of kidney, acquired 07/21/2024 [...] 68 08/01/2024 1:48 AM EST Temperature 36.2 C (97.2 F) 08/01/2024 1:48 AM EST Respiratory Rate 14 08/01/2024 1:48 AM EST [...] 5 Years) and At-Risk Patients (6 to 49 Years) (3 of 3 - PPSV23, PCV20 or PCV21) 08/07/2016 01/10/2013, 08/07/2011 DTaP,Tdap,and Td Vaccines (2 - Td or Tdap) 08/07/2021 08/07/2011 Colorectal Cancer Screening: Colonoscopy 05/23/2024 Hepatitis C Screening 05/23/2024 Social Influencers of Health Screening 05/23/2024 Depression Screening 08/16/2024 Influenza Vaccine (#1) 2025 06/25/2014 Hepatitis A Vaccines Completed 01/15/2015, [...] to complete this topic Insurance MEDICAID - [place] Care Teams Print Shop Chief Clerk Relationship Specialty Start Date End Date Luzma Garcia NP [address] [place] [id number] PCP - General 04/27/24
== END 2025-03-13 14:43 | disposition home or self-care (01) ==
LOC: HO.MAMMO 14:42
PROVIDERS: PCP Student in an Organized Health Care Education/Training Program; Visit Provider Student in an Organized Health Care Education/Training Program
DX: Z12.31 Encounter for screening mammogram for malignant neoplasm of breast (principal)
CPT/HCPCS: 77063; 77067

== ENCOUNTER → 2025-03-13 14:45 | Outpatient (BNV) | payer MEDICAID, SELFPAY | PROVIDERS: PCP Student in an Organized Health Care Education/Training Program; Visit Provider Internal Medicine | DX: Z12.31 Encounter for screening mammogram for malignant neoplasm of breast (principal) | CPT/HCPCS: 77063; 77067 ==

== ENCOUNTER 2025-03-17 14:24 | Emergency (ER) | payer MEDICAID, SELFPAY ==
--- NOTE | ~2025-03-17 | CT_ITS ---
CLINICAL HISTORY: right flank pain radiates to the right abd. CT abdomen and pelvis without contrast Comparison: CT/SR - CT ABDOMEN PELVIS UROGRAPHY WITHOUT THEN WITH IV CONTRAST - 07/17/2024 04:16 PM EST Findings: Atelectasis. Thin-walled cysts in the right lung. Hepatomegaly. Right-sided hypodense renal cysts. No obstructive urolithiasis. Mildly prominent fluid-filled loop of redundant small bowel in the right pelvis measuring 2.4 cm. No bowel obstruction. Scattered colonic diverticulosis without diverticulitis or colitis. Bladder is decompressed. No acute fracture. IMPRESSION: No acute findings. This document has been electronically signed by: Mahendra Tinoco MD on 03/17/2025 19:59:37
[2025-03-17 15:04] VITALS: BP 113/66; PULSE 68; RESP 17; TEMP 36.8; O2SAT 97; BMI 21.5
--- NOTE | 2025-03-17 15:04 | ED_ITS ---
HPI - Abdominal Pain General Chief Complaint: Back Pain/Injury Stated Complaint: r side around to pelvic pain Time Seen by Provider: 03/17/25 18:08 Source: patient and interpreter deaf Mode of arrival: ambulatory Limitations: no limitations History of Present Illness ED Provider: DR. Roberson HPI narrative: 44-year-old female presented for evaluation of right lower back pain radiates to right lower abdominal area, and right leg started since yesterday after attempting to lift something heavy, pain is radiating to the right leg, patient with known history of sciatica, otherwise declined fever, chills. Patient also reporting increased frequently urination, blood in the urine patient is known to have blood in the urine for long time. Surgical history of hysterectomy and ovarian cyst removal. Related Data Home Medications ?Medication ?Instructions ?Recorded ?Confirmed albuterol sulfate 90 mcg/actuation 2 puff inhalation Q 4H PRN 12/15/23 aerosol inhaler (Ventolin HFA) bictegravir 50 mg-emtricitabine 1 tab PO QAM 12/15/23 200 mg-tenofovir alafenam 25 mg tablet (Biktarvy) cholecalciferol (vitamin D3) 50 50 mcg PO QAM 12/15/23 mcg (2,000 unit) capsule (Vitamin D3) fluticasone 250 mcg-salmeterol 50 1 ea inhalation Q12H 12/15/23 mcg/dose blistr powdr for inhalation (Advair Diskus) gabapentin 300 mg capsule 300 mg PO BEDTIME 12/15/23 oxycodone 10 mg tablet 10 mg PO Q8-12H PRN severe p ain 12/15/23 varenicline tartrate 1 mg tablet 1 mg PO Q12H 12/15/23 zolpidem 10 mg tablet 10 mg PO BEDTIME PRN insomni a 12/15/23 Previous Rx's ?Medication ?Instructions ?Recorded ketorolac 10 mg tablet 10 mg PO Q6H PRN pain #20 ta bs 02/21/25 methylprednisolone 4 mg tablets in 4 mg PO QAM #21 ea 02/21/25 a dose pack (Medrol (Mekhi)) cefuroxime axetil 250 mg tablet 250 mg PO BID #14 tabs 03/17/25 cyclobenzaprine 10 mg tablet 10 mg PO TID PRN muscle s pasm #14 03/17/25 tabs ibuprofen 800 mg tablet 800 mg PO Q8H PRN pain #14 t abs 03/17/25 oxycodone 5 mg tablet 5 mg PO BID PRN pain #4 tabs 03/17/25 Allergies Allergy/AdvReac Type Severity Reaction Status Date / Time azithromycin (AZITHROMYCIN) Allergy Intermediate DIARRHEA Verified 03/17/25 15:10 ciprofloxacin (From CIPRO) Allergy Intermediate DIARRHEA Verified 03/17/25 15:10 Review of Systems Review of Systems All other systems are reviewed and are negative Constitutional: Reports as per HPI and Reports no additional constitutional complaints Eyes: Reports as per HPI and Reports no additional eye complaints Reports system reviewed and no additional complaints, except as documented Cardiovascular: Reports as per HPI and Reports no additional cardiovascular complaints Respiratory: Reports as per HPI and Reports no additional respiratory complaints Gastrointestinal: Reports as per HPI and Reports no additional gastrointestinal complaints Genitourinary: Reports no additional female genitourinary complaints Musculoskeletal: Reports no additional musculoskeletal complaints Skin/Breast: Reports system reviewed and no additional complaints, except as docu Psychiatric: Reports no additional psychiatric complaints Endocrine: Reports no additional endocrine complaints Hematologic/Lymphatic: Reports no additional hematologic/lymphatic complaints Allergic/Immunologic: Reports no additional allergic/immunologic complaints Reports system reviewed and no additional complaints, except as documented and Reports Abnormal speech present [facility] Past Medical History Medical History Migraines HIV (human immunodeficiency virus infection) Surgical History H/O hemorrhoidectomy Hx of colonoscopy History of hysterectomy Hx of ovarian cyst H/O section Family History Family History Father No problems noted. Mother No problems noted. Brother No problems noted. Son No problems noted. Son No problems noted. Social History Social History Alcohol intake: never Cigarettes Per Day: 6 Substance Use Type: Marijuana Advance Directives: No Advance Directives Information Provided: No Do you have a plan to hurt others: No Plan Physical Exam ED Vital Signs: Vital Signs - 24 hr 03/17/25 15:04 03/17/25 18:14 03/17/25 19:29 Temperature 98.3 F 98.1 F 98.1 F Pulse Rate 68 64 63 Respiratory Rate 17 16 18 Blood Pressure 113/66 112/80 114/85 Pulse Oximetry 97 97 100 Oxygen Delivery Method Room Air Room Air Room Air BMI result Body Mass Index 21.5 Vital signs have been reviewed and appear to be correct. Blood pressure elevated. Heart rate normal. Respiratory rate normal. Temperature normal. Oxygen saturation normal. Appearance: Alert. Oriented X3. No acute distress. Head: Normal external exam. Normocephalic. Atraumatic. No Marquez signs noted. No raccoon eyes noted Eyes: PERRLA. EOMI. Conjunctiva and sclera normal. Eyelids normal. ENT: TM's Normal. Pharynx normal. Uvula midline. Moist mucous membranes. No trismus noted. No drooling noted. No muffled voice noted. Neck: Normal inspection. Neck supple. FROM. No adenopathy. Thyroid Normal. No meningeal signs. No neck mass noted. CVS: Normal heart rate and rhythm. Heart sound normal. No murmurs noted. Pulses normal throughout. Respiratory: No respiratory distress. Painless inspiration. Breath sounds normal. No wheezes/rales/rhonchi noted. Chest nontender. No accessory muscle usage noted or decreased air movement noted. Abdomen: Soft and nontender. Bowel sounds normal in all 4 quadrants. No distention noted. No organomegaly noted. No visible injury noted. Back: No CVA tenderness. Full range of motion noted. Skin: Skin warm and dry. Normal skin color. Normal skin turgor. No rashes/lesions/lacerations noted. Extremities: No lower extremity edema. Extremities exhibit normal range of motion. Extremities nontender. Neuro: Oriented X 3. Cranial nerve exam: II-XII are grossly intact No motor deficit. No sensory deficit. Reflexes normal. Course Course Course Narrative: This is an RME performed by Remigio Ruiz CNP: Additional HPI, ROS, PE not included below will be deferred to primary provider. Reports since emergency department for evaluation of radiating to right lower quadrant and down the right leg. Symptoms yesterday, was lifting something heavy, and had sudden onset of the pain. Having urinary urgency but difficulty voiding, denying dysuria. Endorsing right-sided pelvic pain, endorses having a fluid-filled cyst, denies concern for STI, abnormal vaginal discharge or bleeding. Reports history of hysterectomy 18 years ago due to cancer. Plan: Serum labs, urinalysis Reevaluation(s) Reevaluation #1: right lumbar radiculopathy will discharge with for pills of oxycodone / ibuprofen /muscle relaxant. UTI symptoms start on Macrobid and encouraged to drink plenty of fluids. Time: 20:36 Medical Decision Making Differential Diagnosis Differential Diagnoses: The differential diagnosis associated with the presentation includes (Renal colic, pyelonephritis, kidney stones, sciatica.) Admission/Observation Consideration of admission/observation: Escalation of care including admission/observation considered Lab Data MDM Lab Attestation statement: I reviewed the patient's lab results. 03/17/25 15:51 03/17/25 15:51 Labs: Lab Results 03/17/25 03/17/25 Range/Units 15:51 16:13 WBC 4.2 L (4.8-10.8) X10*3/uL RBC 4.14 L (4.20-5.50) X10*6/uL Hgb 13.8 (12.0-16.0) g/dl Hct 39.6 (37.0-47.0) % MCV 95.7 (80.0-98.0) fL MCH 33.3 H (27.0-33.0) pg MCHC 34.8 (31.0-35.0) g/dl RDW 12.0 (11.0-16.0) % Plt Count 134 L (160-400) X10*3/uL MPV 11.1 (9.4-12.3) fL Immature Gran % (Auto) 0.2 (0.0-0.4) % Neut % (Auto) 61.6 (45-73) % Lymph % (Auto) 28.1 (20-40) % Garland % (Auto) 7.7 (2-11) % Eos % (Auto) 2.2 (0-4) % Baso % (Auto) 0.2 (0-2) % Lymph # (Auto) 1.2 (1.2-4.9) X10*3/uL Garland # (Auto) 0.3 (0.1-1.2) X10*3/uL Eos # (Auto) 0.1 (0.0-0.4) X10*3/uL Baso # (Auto) 0.0 (0.0-0.2) X10*3/uL Abs Immat Gran (auto) 0.01 (0.00-0.03) X10*3/uL Absolute Neuts (auto) 2.6 (2.0-8.3) x10*3/uL Absolute Nucleated RBC 0.000 (0.0-0.012) X10*3/uL Nucleated RBC % (auto) 0.0 (0.0-0.2) /100WBC Smear Tech's Comments VERIFIED Sodium 140 (135-145) mmol/L Potassium 4.1 (3.3-5.1) mmol/L Chloride 108 (96-108) mmol/L Carbon Dioxide 28 (22-29) mmol/L Anion Gap 8 L (12-20) BUN 18 H (9-16) mg/dL Creatinine 0.74 (0.5-1.4) mg/dL Estim Creat Clear Calc 89.8 Estimated GFR > 60 Random Glucose 82 (60-115) mg/dL Calcium 8.9 (8.4-10.2) mg/dL Total Bilirubin 0.5 (0.0-1.0) mg/dL AST 21 (5-31) U/L ALT 15 (0-31) U/L Alkaline Phosphatase 81 (39-117) U/L C-Reactive Protein < 0.04 (< or = 0.50) mg/dL Total Protein 7.2 (6.5-8.0) g/dL Albumin 4.2 (3.5-5.0) g/dL Lipase 17 (8-78) U/L Beta HCG, Quant < 2 mIU/mL Urine Color Yellow Urine Appearance Clear Urine pH 7.0 (5.0-9.0) Ur Specific Martin >= 1.030 H (1.005-1.025) Urine Protein Trace (Neg-Trace) mg/dL Urine Glucose (UA) Negative (Negative) mg/dL Urine Ketones Trace (Negative) mg/dL Urine Blood Moderate (2+) H (Negative) Urine Nitrite Positive H (Negative) Ur Leukocyte Esterase Trace H (Negative) Urine RBC >20 H (0-2) /HPF Urine WBC 0-5 (0-5) /HPF Ur Squamous Epith Cells 6-10 (0-2) /HPF Urine Bacteria 4+ (None Seen) Hyaline Casts 0-2 (0-2) /LPF Independent Interpretation I performed an independent interpretation of an: CT Scan ( abdomen pelvis: No acute pathology) Medications Administered Discontinued Medications Generic Name Dose Route Start Last Admin Trade Name Freq PRN Reason Stop Dose Admin Cefuroxime Axetil 250 mg 03/17/25 19:33 03/17/25 20:02 Cefuroxime Axetil 250 Mg Tablet PO 03/17/25 19:34 250 mg ONCE ONE Administration Diazepam 2.5 mg 03/17/25 19:47 03/17/25 20:01 Diazepam 10 Mg/2 Ml Cartridge IVPUSH 03/17/25 19:48 2.5 mg STAT STA Administration Ketorolac Tromethamine 15 mg 03/17/25 18:28 03/17/25 18:40 Ketorolac Tromethamine 15 Mg/Ml Vial IVPUSH 03/17/25 18:29 15 mg ONCE ONE Administration Morphine Sulfate 2 mg 03/17/25 18:28 03/17/25 18:41 Morphine Sulfate 2 Mg/Ml Cartridge IVPUSH 03/17/25 18:29 2 mg ONCE ONE Administration Protocol Morphine Sulfate 2 mg 03/17/25 19:47 03/17/25 20:02 Morphine Sulfate 2 Mg/Ml Cartridge IVPUSH 03/17/25 19:48 2 mg ONCE ONE Administration Protocol Discharge Plan Discharge Clinical Impression: UTI (urinary tract infection), Lumbar radiculopathy, right Patient Disposition: Home, Self-Care Instructions: Urinary Tract Infection in Women (DC) Prescriptions: New cefuroxime axetil 250 mg tablet 250 mg PO BID Qty: 14 0RF ibuprofen 800 mg tablet 800 mg PO Q8H PRN (Reason: pain) Qty: 14 0RF cyclobenzaprine 10 mg tablet 10 mg PO TID PRN (Reason: muscle spasm) Qty: 14 0RF oxycodone 5 mg tablet 5 mg PO BID PRN (Reason: pain) Qty: 4 0RF Rx Instructions: Partial Fill upon patient request. No Action methylprednisolone [Medrol (Mekhi)] 4 mg tablets,dose pack 4 mg PO QAM Qty: 21 0RF Rx Instructions: Take per package instructions ketorolac 10 mg tablet 10 mg PO Q6H PRN (Reason: pain) Qty: 20 0RF Rx Instructions: maximum total duration of 5 days from all oral, intranasal, or parenteral formulations, the patient received an intramuscular dose of Toradol here in the emergency room zolpidem 10 mg tablet 10 mg PO BEDTIME PRN (Reason: insomnia) oxycodone 10 mg tablet 10 mg PO Q8-12H PRN (Reason: severe pain) Biktarvy 50-200-25 mg tablet 1 tab PO QAM varenicline tartrate 1 mg tablet 1 mg PO Q12H albuterol sulfate [Ventolin HFA] 90 mcg/actuation HFA aerosol inhaler 2 puff inhalation Q4H PRN gabapentin 300 mg capsule 300 mg PO BEDTIME fluticasone propion-salmeterol [Advair Diskus] 250-50 mcg/dose blister with device 1 ea inhalation Q12H cholecalciferol (vitamin D3) [Vitamin D3] 50 mcg (2,000 unit) capsule 50 mcg PO QAM Referrals: Marry Gardner MD [Primary Care Provider, Internal Medicine] Print Language: Greek
[2025-03-17 16:00] LABS: Hematocrit 39.6 % (37.0-47.0); Imm Gran Abs Auto 0.01 X10*3/uL (0.00-0.03); Imm Gran Pct Auto 0.2 % (0.0-0.4); NRBC Abs Auto 0.000 X10*3/uL (0.0-0.012); NRBC Pct Auto 0.0 /100WBC (0.0-0.2); PLT CLUMP 1; SCAN SMEAR FLAG 1
[2025-03-17 16:01] LABS: MANUAL DIFF FLAG SCAN
[2025-03-17 16:02] LABS: Hemoglobin 13.8 g/dl (12.0-16.0); Lymphocytes Absolute Auto 1.2 X10*3/uL (1.2-4.9); Mean Corpuscular HGB Conc 34.8 g/dl (31.0-35.0); Mean Corpuscular Hemoglobin 33.3 pg (27.0-33.0); Mean Corpuscular Volume 95.7 fL (80.0-98.0); Platelet Count 134 X10*3/uL (160-400); Red Blood Count 4.14 X10*6/uL (4.20-5.50); White Blood Count 4.2 X10*3/uL (4.8-10.8)
[2025-03-17 16:16] LABS: Alanine Aminotransferase 15 U/L (0-31); Albumin Level 4.2 g/dL (3.5-5.0); Alkaline Phosphatase 81 U/L (39-117); Anion Gap 8 (12-20); Aspartate Amino Transferase 21 U/L (5-31); Blood Urea Nitrogen 18 mg/dL (9-16); Calcium 8.9 mg/dL (8.4-10.2); Carbon Dioxide 28 mmol/L (22-29); Chloride 108 mmol/L (96-108); Creatinine Clr Calc Pharmacy 89.8; Estimated Glomerular Filt Rate > 60; Lipase 17 U/L (8-78); Potassium 4.1 mmol/L (3.3-5.1); Sodium 140 mmol/L (135-145); Total Protein 7.2 g/dL (6.5-8.0)
[2025-03-17 16:19] LABS: Appearance Urine Clear; Glucose Urine UA Negative (Negative); PH 7.0 (5.0-9.0); Specific Gravity - Urine >= 1.030 (1.005-1.025); UMIC TRIGGER UACC YES
[2025-03-17 16:24] LABS: UACC Culture Trigger YES
[2025-03-17 18:14] VITALS: BP 112/80; PULSE 64; RESP 16; TEMP 36.7; O2SAT 97
[2025-03-17 19:29] VITALS: BP 114/85; PULSE 63; RESP 18; TEMP 36.7; O2SAT 100
--- NOTE | 2025-03-17 19:48 | PC.NURSE ---
upon entering room pt appeared comfortable, on her phone. pt requested water, educated might need to hold off d/t imaging but will ask provider. pt then requested hob to be lowered and upon attempting pt sccoched self off of bed and hunched over stating pain is 10/10 to R. side lower back. made aware with suggestion for muscle relaxer as previous meds did not work for her.
[2025-03-17] MEDS: diazePAM 10 MG/2 ML CARTRIDGE 2.5 MG IVPUSH (20:01)
--- NOTE | 2025-03-17 20:08 | PC.NURSE ---
video sap sd analyst used to educated on meds being given. pt medicated per mar.
[2025-03-17 20:35] VITALS: BP 114/85; PULSE 63; RESP 18; TEMP 36.7; O2SAT 100
== END 2025-03-17 20:35 | disposition home or self-care (01) ==
PROVIDERS: Nurse Practitioner Family; Emergency Provider Emergency Medicine; PCP Student in an Organized Health Care Education/Training Program
DX: N39.0 Urinary tract infection, site not specified (principal); R31.0 Gross hematuria; G43.909 Migraine, unspecified, not intractable, without status migrainosus; F12.90 Cannabis use, unspecified, uncomplicated; Z21 Asymptomatic human immunodeficiency virus [HIV] infection status; Z79.899 Other long term (current) drug therapy; M54.16 Radiculopathy, lumbar region
CPT/HCPCS: 36415; 74176; 80053; 81001; 83690; 84702; 85025; 86140; 87086; 87088; 87186; 96374; 96375; 96376; 99284; 99285; J1885; J2270; J3360

== ENCOUNTER → 2025-03-17 18:27 | Outpatient (BNV) | payer MEDICAID, SELFPAY | PROVIDERS: Emergency Provider Emergency Medicine; PCP Student in an Organized Health Care Education/Training Program; Visit Provider Radiology Diagnostic Radiology | DX: N28.1 Cyst of kidney, acquired (principal) | CPT/HCPCS: 74176 ==

== ENCOUNTER 2025-05-24 15:10 | Outpatient (REF) | payer MEDICAID, SELFPAY ==
--- NOTE | ~2025-05-24 | MR_ITS ---
EXAMINATION: MR LUMBAR SPINE WITHOUT CONTRAST CLINICAL INFORMATION: Weakness and Low back pain and weakness radiating to lower extremity. Past history of HIV. COMPARISON: Lumbar spine x-ray 02/21/2025 TECHNIQUE: MRI of the lumbar spine was obtained using routine sequences without contrast. FINDINGS: There is normal lumbar lordosis. The vertebral heights and alignment is normal. There is mild loss of L4-5 and L2-3 disc heights with mild loss of disc signal. At L1-2 disc level there is no signal disc bulge, herniation or spinal canal stenosis. The neural foramina are patent bilaterally. At L2-3 disc level there is minimal diffuse bulge with left lateral disc annular tear with small herniation narrowing left neural foramina. Bilateral appreciated on axial images. The right neural foramina is mildly narrowed from underlying bulge. At L3-4 disc level there is a mild diffuse bulge without spinal canal stenosis. Right lateral annular tear with a small disc herniation moderately narrowing the right neural foramina as noted. The left neural foramina is mildly narrowed. At L4-5 disc level there is moderate to significant spinal canal stenosis from underlying broad-based diffuse bulge/herniation resulting in moderate to severe bilateral neural foraminal narrowing. There is mild underlying bilateral facet joint and ligamentum flavum hypertrophy. At L5-S1 disc level there is no signal disc bulge, herniation or spinal canal stenosis. The neural foramina patent. The bone marrow signal, intraspinal signal and paravertebral soft tissues are normal. The conus medullaris terminates at T12 vertebra and appears normal in morphology. MR/MR lumbar spine wo con IMPRESSION: Multilevel diffuse bulges as described above with annular tear and small disc herniation narrowing the left neural foramina at L2-3, right lateral annular tear with small disc herniation moderately narrowing the right neural foramina at L3-4 and a broad-based diffuse bulge/herniation resulting in moderate to severe spinal canal stenosis at the L4-5 disc level. Electronically signed by: Paramjit Moss MD 05/25/2025 07:18 AM EDT
[2025-05-24 15:35] LABS: MANUAL DIFF FLAG NO
[2025-05-24 15:45] LABS: Hematocrit 39.7 % (37.0-47.0); Hemoglobin 13.2 g/dl (12.0-16.0); Imm Gran Abs Auto 0.01 X10*3/uL (0.00-0.03); Imm Gran Pct Auto 0.3 % (0.0-0.4); Lymphocytes Absolute Auto 1.1 X10*3/uL (1.2-4.9); Mean Corpuscular HGB Conc 33.2 g/dl (31.0-35.0); Mean Corpuscular Hemoglobin 32.9 pg (27.0-33.0); Mean Corpuscular Volume 99.0 fL (80.0-98.0); NRBC Abs Auto 0.000 X10*3/uL (0.0-0.012); NRBC Pct Auto 0.0 /100WBC (0.0-0.2); Platelet Count 154 X10*3/uL (160-400); Red Blood Count 4.01 X10*6/uL (4.20-5.50); White Blood Count 4.0 X10*3/uL (4.8-10.8)
[2025-05-24 16:48] LABS: Alanine Aminotransferase 33 U/L (0-31); Albumin Level 4.2 g/dL (3.5-5.0); Alkaline Phosphatase 102 U/L (39-117); Aspartate Amino Transferase 10 U/L (5-31); Total Protein 7.3 g/dL (6.5-8.0)
[2025-05-24 17:08] LABS: Folate 9.7 ng/mL (> or = 4.0); Vitamin B12 429 pg/mL (200-900)
== END 2025-05-24 15:11 | disposition home or self-care (01) ==
LOC: HO.MRI 15:10
PROVIDERS: PCP Nurse Practitioner Primary Care; Visit Provider Nurse Practitioner Primary Care
DX: M54.41 Lumbago with sciatica, right side (principal); D69.6 Thrombocytopenia, unspecified; R23.2 Flushing
CPT/HCPCS: 72148; 80076; 82525; 82607; 82746; 84443; 85025

== ENCOUNTER → 2025-05-24 19:47 | Outpatient (BNV) | payer MEDICAID, SELFPAY | PROVIDERS: PCP Nurse Practitioner Primary Care; Visit Provider Radiology Diagnostic Radiology | DX: M51.26 Other intervertebral disc displacement, lumbar region (principal); M99.83 Other biomechanical lesions of lumbar region | CPT/HCPCS: 72148 ==

== ENCOUNTER 2025-05-31 10:04 | Outpatient (AMB) | payer MEDICAID, SELFPAY ==
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
[2025-05-31 10:11] VITALS: BMI 21.3
--- OUTSIDE RECORDS SUMMARY | 2025-05-31 12:04 | XMS_ITS | Clinical Summary ---
Author Organization 175 [facility] Address [address] [place] [address] Phone Care Team Providers Care Armorer Technician Name Role Phone RadhaLuzma Olegario PETERS Primary Care Provider [phone] Allergies No known active allergies Medications albuterol [...] extremities 01/2024 Vascular insufficiency 07/21/2024 HIV infection ([facility] V24, [facility] V28) 024 Cyst of kidney, acquired [...] Last Done Comments Breast Cancer Screening 1979 Colorectal Cancer Screening: Colonoscopy 1979 Meningococcal ACWY Vaccine (1 - Risk 2-dose series) 1981 COVID-19 Vaccine (#1) 1984 MMR Vaccines (1 of 2 - Risk 2-dose series) 1997 Cervical Cancer Screening: Pap Smear 2000 HPV Vaccines (1 - Risk 3-dose SCDM series) 2006 Pneumococcal Vaccine: Pediatrics (0 to 5 Years) and At-Risk Patients (6 to 49 Years) (3 of 3 - PCV20 or PCV21) 08/07/2016 01/10/2013, 08/07/2011 DTaP,Tdap,and Td Vaccines (2 - Td or Tdap) 08/07/2021 08/07/2011 Hepatitis C Screening 05/23/2024 Social Influencers of Health Screening 05/23/2024 Depression Screening 08/16/2024 Influenza Vaccine (#1) 2025 06/25/2014 RSV Immunization Adult Patients (1 - 1-dose 75+ series) 2054 Hepatitis A Vaccines Completed 01/15/2015, 06/25/2014, 09/15/2012, [...] to complete this topic Insurance MEDICA[place] - [place] Care Teams Armorer Technician Relationship Specialty Start Date End Date Luzma Garcia NP [address] [place] [phone] PCP - General 04/27/24
== END 2025-05-31 10:47 | disposition home or self-care (01) ==
LOC: HO.HNS 10:05
PROVIDERS: PCP Nurse Practitioner Primary Care; Referring Provider Nurse Practitioner Primary Care; Visit Provider Physician Assistant
DX: M51.26 Other intervertebral disc displacement, lumbar region (principal)
CPT/HCPCS: 99204

== ENCOUNTER → 2025-05-31 10:04 | Outpatient (BNVA) | payer MEDICAID, SELFPAY | PROVIDERS: PCP Nurse Practitioner Primary Care; Referring Provider Nurse Practitioner Primary Care; Visit Provider Physician Assistant | DX: M51.26 Other intervertebral disc displacement, lumbar region (principal) | CPT/HCPCS: 99212 ==

== ENCOUNTER 2025-06-20 09:16 | Outpatient (REF) | payer MEDICAID, SELFPAY ==
--- OUTSIDE RECORDS SUMMARY | 2025-06-20 10:05 | XMS_ITS | Clinical Summary ---
Author Organization 175 [facility] Address [address] [place] [address] Phone Care Team Providers Care Rope Cleaner Name Role Phone RadhaLuzma Olegario PETERS Primary Care Provider [phone] Allergies No known active allergies Medications albuterol [...] extremities 01/2024 Vascular insufficiency 07/21/2024 HIV infection ([facility] V24, [facility] V28) 024 Cyst of kidney, [...] topic Insurance [place] - [place] Care Teams Rope Cleaner Relationship Specialty Start Date End Date Luzma Garcia NP [address] [place] [phone] PCP - General 04/27/24
[2025-06-20 11:11] LABS: MANUAL DIFF FLAG NO
[2025-06-20 11:23] LABS: Hematocrit 44.3 % (37.0-47.0); Hemoglobin 14.4 g/dl (12.0-16.0); Imm Gran Abs Auto 0.01 X10*3/uL (0.00-0.03); Imm Gran Pct Auto 0.2 % (0.0-0.4); Lymphocytes Absolute Auto 1.0 X10*3/uL (1.2-4.9); Mean Corpuscular HGB Conc 32.5 g/dl (31.0-35.0); Mean Corpuscular Hemoglobin 32.1 pg (27.0-33.0); Mean Corpuscular Volume 98.9 fL (80.0-98.0); NRBC Abs Auto 0.000 X10*3/uL (0.0-0.012); NRBC Pct Auto 0.0 /100WBC (0.0-0.2); Platelet Count 180 X10*3/uL (160-400); Red Blood Count 4.48 X10*6/uL (4.20-5.50); White Blood Count 6.4 X10*3/uL (4.8-10.8)
[2025-06-20 11:50] LABS: Alanine Aminotransferase 28 U/L (0-31); Albumin Level 4.5 g/dL (3.5-5.0); Alkaline Phosphatase 108 U/L (39-117); Anion Gap 13 (12-20); Aspartate Amino Transferase 24 U/L (5-31); Blood Urea Nitrogen 18 mg/dL (9-16); Calcium 9.7 mg/dL (8.4-10.2); Carbon Dioxide 27 mmol/L (22-29); Chloride 106 mmol/L (96-108); Cholesterol 240 mg/dL (<200); Estimated Glomerular Filt Rate > 60; HDL Cholesterol 69 mg/dL (>40); Potassium 3.7 mmol/L (3.3-5.1); Sodium 142 mmol/L (135-145); Total Protein 8.0 g/dL (6.5-8.0); Triglycerides 78 mg/dL (<150)
[2025-06-20 14:09] LABS: Reflex LDLD? No
[2025-06-21 07:54] LABS: HBS Num1 20.18 mIU/mL (0-7.99); HBc Num1 0.09 S/CO (0.00-0.79); HBsAGNum1 0.49 S/CO (0.00-0.99); Hepatitis B Surface Antigen Negative (Negative); ~HepC Num1 0.08 S/CO (0.00-0.79); ~Hepatitis B Surface Antibody REACTIVE (Nonreactive); ~Hepatitis C Antibody Nonreactive (Nonreactive)
[2025-06-22 05:08] LABS: HIV RNA PCR Qn Copies NOT DETECTED copies/mL (NOT DETECTED); HIV RNA PCR Qn Log Copies NOT DETECTED (NOT DETECTED)
[2025-06-22 08:07] LABS: ~Hepatitis A Antibody IgG 2.93 S/CO (0.00-0.99)
[2025-06-23 17:48] LABS: TS Negative Control Passed; TS Panel A 0; TS Panel B 2; TS Positive Control Passed; TSpotTB Negative (Negative)
[2025-06-27 15:58] LABS: Absolute CD3 Count 761 cells/uL (840-3060); Absolute CD8 Count 417 cells/uL (180-1170); Percent CD3 Cells 87 % (57-85); Percent CD8 Cells 48 % (12-42)
== END 2025-06-20 09:17 | disposition home or self-care (01) ==
LOC: HO.HHCL 09:16
PROVIDERS: PCP Nurse Practitioner Primary Care; Visit Provider Student in an Organized Health Care Education/Training Program
DX: Z11.1 Encounter for screening for respiratory tuberculosis (principal); Z11.59 Encounter for screening for other viral diseases; Z11.3 Encounter for screening for infections with a predominantly sexual mode of transmission; Z21 Asymptomatic human immunodeficiency virus [HIV] infection status
CPT/HCPCS: 36415; 80053; 80061; 83036; 85025; 86359; 86360; 86481; 86592; 86704; 86706; 86708; 86803; 87340; 87536

== ENCOUNTER 2025-07-06 17:00 | Outpatient (REF) | payer MEDICAID, SELFPAY | END 2025-07-06 17:01 | disposition home or self-care (01) | LOC: HO.HHCLNP 17:00 | PROVIDERS: Visit Provider Nurse Practitioner Primary Care | DX: R82.90 Unspecified abnormal findings in urine (principal) | CPT/HCPCS: 87086; 87088; 87186 ==

== ENCOUNTER 2025-07-09 12:30 | Outpatient (REF) | payer MEDICAID, SELFPAY ==
--- NOTE | ~2025-07-09 | US_ITS ---
CLINICAL HISTORY: R31.29 - Other microscopic hematuria US Renal Comparison: CT fragment without contrast from 03/17/2025. Findings: Right kidney measures 11.2 cm length. Left kidney measures 10.9 cm length. Portions of the kidneys obscured by side lobe artifacts. No suspicious features of the 4 mm cysts of the lower pole of the left kidney. Question internal nodularity of the 1.5 cm cystic lesion of the right kidney. Simple cysts is not confirmed by ultrasound at this time. Separate small cysts is without suspicious features measuring 9 mm in the right kidney. No hydronephrosis of either imaged kidney. No definite ascites in the imaged abdomen. IMPRESSION: 1. No hydronephrosis either imaged kidney. 2. Internal echogenicity is nonspecific and 1.5 cm predominately cystic lesion of the right kidney. [place] 2 F. Recommend six-month follow-up. Additional characterization can be considered with renal mass MRI, if not already achieved. This document has been electronically signed by: Migel Allison MD on 07/10/2025 03:05:20
== END 2025-07-09 12:31 | disposition home or self-care (01) ==
LOC: HO.US 12:30
PROVIDERS: PCP Nurse Practitioner Primary Care; Visit Provider Urology
DX: N28.1 Cyst of kidney, acquired (principal); R31.29 Other microscopic hematuria
CPT/HCPCS: 76775

== ENCOUNTER → 2025-07-09 12:33 | Outpatient (BNV) | payer MEDICAID, SELFPAY | PROVIDERS: PCP Nurse Practitioner Primary Care; Visit Provider Radiology Neuroradiology | DX: N28.9 Disorder of kidney and ureter, unspecified (principal); N28.1 Cyst of kidney, acquired | CPT/HCPCS: 76775 ==

== ENCOUNTER 2025-07-30 09:18 | Outpatient (REF) | payer MEDICAID, SELFPAY ==
--- NOTE | ~2025-07-30 | US_ITS ---
CLINICAL HISTORY: hepatomegaly on abd pelv CT 2024, thrombocytopenia US abdomen complete Comparison: CT/SR - ABDOMEN ABD_PEL_WITHOUT (ADULT) - 03/17/25 18:[address]/SR - CT ABDOMEN PELVIS UROGRAPHY WITHOUT THEN WITH IV CONTRAST - 07/17/24 16:16 EST Findings: The visualized pancreas is normal, distal tail is not well seen due to bowel gas. The visualized aorta and inferior vena cava are normal caliber. The liver is normal in size, right lobe length is roughly 14.5 cm. Normal in echogenicity, homogeneously hyperechoic avascular mass 1 cm in the right lobe, no posterior acoustic shadowing. No intrahepatic bile duct dilatation. The common duct is 5 mm in diameter. The gallbladder is normal. Negative sonographic Haney sign. The main portal vein is patent with antegrade flow. The right kidney is normal in size and echogenicity, 12.0 cm in length. Mild pelviectasis without calyceal dilatation, complex cyst with nodular avascular septation up to 3 mm 1.5 x 1.4 x 1.5 cm in the midpole, stable in size when compared to CT exam from 2023 and this cyst was simple on prior CT. simple cyst 1.2 cm in the midpole, no calculus. The left kidney is unremarkable, 10.9 cm in length. 3 mm simple cyst in the midpole. The spleen is normal, 8.1 cm in length. No free fluid in the abdomen. Impression: 1. No hepatomegaly. Probable right hepatic hemangioma, liver MRI will be confirmatory. 2. Right renal midpole cyst 1.5 cm with new complexity, this can also be further evaluated by abdominal MRI. This document has been electronically signed by: Deepti Alejo MD on 07/30/2025 14:25:46
== END 2025-07-30 09:19 | disposition home or self-care (01) ==
LOC: HO.US 09:18
PROVIDERS: PCP Nurse Practitioner Primary Care; Visit Provider Nurse Practitioner Primary Care
DX: R16.0 Hepatomegaly, not elsewhere classified (principal); D69.6 Thrombocytopenia, unspecified
CPT/HCPCS: 76700

== ENCOUNTER → 2025-07-30 09:20 | Outpatient (BNV) | payer MEDICAID, SELFPAY | PROVIDERS: PCP Nurse Practitioner Primary Care; Visit Provider Radiology Diagnostic Radiology | DX: D69.6 Thrombocytopenia, unspecified (principal); N28.1 Cyst of kidney, acquired | CPT/HCPCS: 76700 ==

== ENCOUNTER 2025-08-06 14:20 | Outpatient (REF) | payer MEDICAID, SELFPAY | END 2025-08-06 14:21 | disposition home or self-care (01) | LOC: HO.LAB 14:20 | PROVIDERS: PCP Student in an Organized Health Care Education/Training Program; Visit Provider Nurse Practitioner Family | DX: N28.1 Cyst of kidney, acquired (principal); R31.29 Other microscopic hematuria | CPT/HCPCS: 81003; 88112; 99212 ==

== ENCOUNTER 2025-08-06 14:20 | Outpatient (AMB) | payer MEDICAID, SELFPAY ==
--- NOTE | 2025-08-06 14:33 | A.OFFVIS_ITS ---
Intake Visit Reasons: 11m/US/UA Intake Note: Patient is Present for 11 mo Follow Up c/o frequent Urination Urology Medication: None Antibiotic Allergies: Azithromycin, Cipro Blood Thinners: None Imaging: Renal US 07/10/25 Accounts Receivable Assistant Required: Yes Accounts Receivable Assistant Language: Manager Embalmer Funeral Director Services: Accounts Receivable Assistant Present Accounts Receivable Assistant Name: Jigna [id number] Information Interpreted: non-clinical & clinical Accompanied by: Self / Same As Patient Allergies azithromycin (AZITHROMYCIN) Allergy (Intermediate, Verified 08/06/25 14:51) DIARRHEA ciprofloxacin (From CIPRO) Allergy (Intermediate, Verified 08/06/25 14:51) DIARRHEA Medication List - Last Reconciled 08/06/25 by SUHAIL Dotson-DIDIER albuterol sulfate 90 mcg/actuation (Ventolin HFA) 2 puffs inhalation Q4H PRN [amoxicillin 500 mg PO BID] [id number]-yflxpyxq-ugbjujn ala 50-200-25 mg (Biktarvy) 1 tab PO QAM cholecalciferol (vitamin D3) (Vitamin D3) 50 mcg PO QAM cyclobenzaprine 10 mg PO TID PRN fluticasone propion-salmeterol 250-50 mcg/dose (Advair Diskus) 1 ea inhalation Q12H gabapentin 300 mg PO BEDTIME ibuprofen 800 mg PO Q8H PRN ketorolac 10 mg PO Q6H PRN methylprednisolone (Medrol (Mekhi)) 4 mg PO QAM oxycodone 10 mg PO Q8-12H PRN zolpidem 10 mg PO BEDTIME PRN HPI Comments Details: Marry is a very pleasant 44-year-old Nigerien-speaking female patient of Dr. Alonso Jernigan. She has a past medical history of HIV and migraines. She presents to the office today for follow-up of her microscopic hematuria as well as renal cysts. In discussion with the patient today she denies having had any bothersome urological issues or concerns since her last office visit here approximately 11 months ago. Most recent renal imaging results reviewed with the patient today. No hydronephrosis of either kidney. Internal echogenicity is nonspecific and a 1.5 predominantly cystic lesion in the right kidney. Singh 2 F. Recommendation with six-month follow-up per radiology report. Also recommending renal mass protocol for further assessment evaluation per radiology report. In discussion with the patient today she reports having followed up with her PCP and has had a recent abdominal ultrasound at which time it noted a a potential hepatic hemangioma in recommendations were also made for an MRI for further assessment evaluation. In office urinalysis results reviewed with the patient today microscopic hematuria is again noted. She does have a previous history of an in office cystoscopy with Dr. Arnulfo Lamb 01/24/24 that noted mild bladder wall thickening, no suspicious lesions seen. She reports a longstanding history of microscopic hematuria. She reports having had partial hysterectomy in [place] over 25 years ago due to potential cancer. When asked she does report a smoking history of approximately 15 years. She reports smoking approximately half a pack of cigarettes per day and has been smoking recreational marijuana for many years. She otherwise denies any bothersome urinary issues or concerns. She denies urinary urgency, urinary frequency, incontinence, nocturia, dysuria, foul smelling urine, changes to urinary stream, flank pain, fever, and or chills. She is happy with her current voiding parameters. Discussed further microscopic hematuria workup versus surveillance monitoring; risks and benefits of these interventions were discussed. All questions were answered. She otherwise offers no other issues or concerns at this time. Urine Cytology: 01/06 Negative for high-grade urothelial carcinoma PFSH Medical History Migraines HIV (human immunodeficiency virus infection) Surgical History H/O hemorrhoidectomy Hx of colonoscopy History of hysterectomy Hx of ovarian cyst H/O section Family History Father Lung cancer Mother No problems noted. Brother No problems noted. Son No problems noted. Son No problems noted. Family/Other Breast cancer Prostate cancer Father No problems noted. Social History Alcohol intake: never Years Smoked: Quit 1 year ago. Substance Use Type: Marijuana service: No Current occupational status: employed Review of Systems Const All systems reviewed & are unremarkable except as noted in HPI and below Physical Exam Const General: cooperative, healthy appearing, comfortable, no acute distress, well developed, alert and awake Nutritional Appearance: average body habitus Orientation/consciousness: patient oriented x3 Limitations: language barrier HEENT Head: Yes normal to inspection, Yes normocephalic and Yes atraumatic Ears: hearing grossly normal bilaterally Eyes General: appearance normal, both eyes and all related structures Neck Neck: Yes normal visual inspection and Yes trachea midline Chest Chest palpation & inspection: normal inspection of the chest Resp Effort & Inspection: normal respiratory effort and able to speak in complete sentences Cardio Rate: regular rate GI Inspection: Yes normal to inspection General: Yes no CVA tenderness Back/Spine/Pelvis Back: no CVA tenderness Skin General skin exam: no rashes or lesions noted Neuro General: patient oriented x3 Extrem General: Yes normal to inspection Psych Appearance: grossly normal and well kempt Mental Status: mental status grossly normal Speech and movement: Normal speech and movement present and Clear speech present Affect: normal affect Attitude: cooperative Thought process: Normal thought process present Thought content: Normal thought content present Insight: Fair insight present (Psych) Judgement: Fair judgement present (Psych) Results AMB Urinalysis, Automated UA Leukoctes 0 [place]/uL Last Edit by Sonia Frank [facility] on 08/06/25 14:43 UA Nitrite Negative Last Edit by [facility] Zac [facility] on 08/06/25 14:43 UA Urobilinogen 0.2 mg/dL Last Edit by Sonia Frank [facility] on 08/06/25 14:43 UA Protein 0 mg/dL Last Edit by Sonia Zac [facility] on 08/06/25 14:43 UA pH 6.0 Last Edit by [facility] Zac [facility] on 08/06/25 14:43 UA Blood 25 Karlos/uL Last Edit by Sonia Zac [facility] on 08/06/25 14:43 UA Specific [place] 1.015 Last Edit by Soniabarbara Frank [facility] on 08/06/25 14:4 3 UA Ketone Negative Last Edit by Soniajohn Frank [facility] on 08/06/25 14:43 UA Bilirubin 0 mg/dL Last Edit by [facility] Zac [facility] on 08/06/25 14:43 UA Glucose 0 mg/dL Last Edit by Soniajohn Frank [facility] on 08/06/25 14:43 Results Reviewed Results Reviewed: Laboratory Last Values Urine pH (Auto) 6.0 08/06/25 14:42 Specific [place] (Auto) 1.015 08/06/25 14:42 Urine Protein (Auto) 0 mg/dL 08/06/25 14:42 Glucose (UA)(Auto) 0 mg/dL 08/06/25 14:42 Urine Ketones (Auto) Negative 08/06/25 14:42 Urine Blood (Auto) 25 Karlos/uL 08/06/25 14:42 Urine Nitrite (Auto) Negative 08/06/25 14:42 Urine Bilirubin (Auto) 0 mg/dL 08/06/25 14:42 Urine Urobilinogen (Auto) 0.2 mg/dL 08/06/25 14:42 Leukocyte Esterase (Auto) 0 [place]/uL 08/06/25 14:42 Date of Service: 07/09/25 Procedure(s): US renal BI Findings: Right kidney measures 11.2 cm length. Left kidney measures 10.9 cm length. Portions of the kidneys obscured by side lobe artifacts. No suspicious features of the 4 mm cysts of the lower pole of the left kidney. Question internal nodularity of the 1.5 cm cystic lesion of the right kidney. Simple cysts is not confirmed by ultrasound at this time. Separate small cysts is without suspicious features measuring 9 mm in the right kidney. No hydronephrosis of either imaged kidney. No definite ascites in the imaged abdomen. IMPRESSION: 1. No hydronephrosis either imaged kidney. 2. Internal echogenicity is nonspecific and 1.5 cm predominately cystic lesion of the right kidney. [place] 2 F. Recommend six-month follow-up. Additional characterization can be considered with renal mass MRI, if not already achieved. Assessment & Plan Assessment & Plan (1) Renal cyst: Code(s): N28.1 - Cyst of kidney, acquired Category: Medical (2) Microscopic hematuria: Code(s): R31.29 - Other microscopic hematuria Category: Medical Plan In office urinalysis results with the patient today; as noted above; will send for urine cytology. Most recent imaging results with the patient today; as noted above. Will obtain MRI renal mass protocol for further assessment evaluation. All questions were answered. She currently denies any bothersome urinary issues or concerns. She reports be happy with current voiding parameters. Follow-up in 3 months with imaging; or sooner with any issues, concerns, and or questions. Orders: Orders Urine Cytology Today R31.29 - Other microscopic hematuria MR abdomen wo con Today N28.1 - Cyst of kidney, acquired AMB Urinalysis Automated Today N13.8 - Other obstructive and reflux uropathy, N40.1 - Benign prostatic hyperplasia with lower urinary tract symptoms Patient Instructions: The patient had an opportunity to ask questions regarding the treatment plan. All questions were answered. Physical exam, labs, and imaging were discussed and reviewed in detail. As well as risks, benefits, and discussion of treatment choices. No major barriers to understanding were identified. The patient expressed understanding and agreement with the above treatment plan. The patient was made aware they should contact our office by phone for worsening of their current condition, the appearance of new symptoms, or with any questions or concerns. Compliance is encouraged with any medications and follow up testing that is ordered. It is a privilege to be allowed the opportunity to participate in? your urological care.? Again, if you have any questions or concerns If you have any questions or concerns please do not hesitate to contact me. The office is [phone]. This note is constructed using voice recognition software. While every effort has been made to ensure accuracy fats and oils loader errors may have been included. Yours sincerely, HERMANN Dotson Coding Level of Care Code Est Pt Level 3 (76119) Add On Problem Visit Only Diagnoses Renal cyst N28.1 Microscopic hematuria R31.29
--- OUTSIDE RECORDS SUMMARY | 2025-08-06 17:48 | XMS_ITS | Clinical Summary ---
Author Organization 175 [facility] Address [address] [place] [address] Phone Care Team Providers Care Botany Teacher Name Role Phone RadhaLuzma Olegario PETERS Primary Care Provider [phone] Allergies No known active allergies Medications albuterol [...] Screening 1979 Colorectal Cancer Screening: Colonoscopy 1979 Drug Screen 1979 Non-Opioid Controlled Substance Agreement 1979 Meningococcal ACWY Vaccine (1 - Risk [...] topic Insurance MEDICAID - [place] Care Teams Botany Teacher Relationship Specialty Start Date End Date Luzma Garcia NP [address] [place] [phone] PCP - General 04/27/24
== END 2025-08-06 15:03 | disposition home or self-care (01) ==
LOC: HO.HUSH 14:21
PROVIDERS: PCP Student in an Organized Health Care Education/Training Program; Visit Provider Nurse Practitioner Family
DX: N28.1 Cyst of kidney, acquired (principal); R31.29 Other microscopic hematuria; N40.1 Benign prostatic hyperplasia with lower urinary tract symptoms; N13.8 Other obstructive and reflux uropathy
CPT/HCPCS: 99213